=== PATIENT | male | born 1960 | race Caucasian/White ===

== ENCOUNTER 2022-07-15 08:00 | Outpatient (REF) | payer OTHER, SELFPAY ==
[2022-07-15 08:10] LABS: MANUAL DIFF FLAG NO
[2022-07-15 08:43] LABS: Basophils Percent Auto 0.6 % (0-2); Eosinophils Absolute Auto 0.3 X10*3/uL (0.0-0.4); Eosinophils Percent Auto 4.1 % (0-4); Hematocrit 44.1 % (42.0-52.0); Hemoglobin 14.7 g/dl (14.0-18.0); Imm Gran Abs Auto 0.02 X10*3/uL (0.00-0.03); Imm Gran Pct Auto 0.3 % (0.0-0.4); Lymphocytes Absolute Auto 2.2 X10*3/uL (1.2-4.9); Lymphocytes Percent Auto 30.7 % (20-40); Mean Corpuscular HGB Conc 33.3 g/dl (31.0-36.0); Mean Corpuscular Hemoglobin 30.6 pg (27.0-33.0); Mean Corpuscular Volume 91.7 fL (80.0-98.0); Monocytes Absolute Auto 0.7 X10*3/uL (0.1-1.2); Monocytes Percent Auto 9.2 % (2-11); Neutrophils Absolute Auto 3.9 x10*3/uL (2.0-8.3); Neutrophils Percent Auto 55.1 % (45-73); Platelet Count 249 X10*3/uL (160-400); Red Blood Count 4.81 X10*6/uL (4.60-5.80); Red Cell Distribution Width 12.4 % (11.0-16.0)
[2022-07-15 09:09] LABS: Alanine Aminotransferase 16 U/L (0-40); Albumin Level 4.2 g/dL (3.5-5.0); Alkaline Phosphatase 64 U/L (39-117); Anion Gap 12 (12-20); Aspartate Amino Transferase 15 U/L (5-37); Bilirubin Total 1.2 mg/dL (0.0-1.0); Blood Urea Nitrogen 18 mg/dL (9-16); Calcium 9.4 mg/dL (8.4-10.2); Carbon Dioxide 29 mmol/L (22-29); Chloride 104 mmol/L (96-108); Cholesterol 176 mg/dL; Estimated Glomerular Filt Rate > 60; Glucose Fasting 98 mg/dL (60-99); HDL Cholesterol 41 mg/dL; LDL Cholesterol Calculated 103 mg/dl; Potassium 4.5 mmol/L (3.3-5.1); Sodium 140 mmol/L (135-145); Total Protein 6.7 g/dL (6.5-8.0); Triglycerides 163 mg/dL
[2022-07-15 09:27] LABS: Prostate Specific Antigen Scr 0.71 ng/mL (<0.05-4.0)
== END 2022-07-15 08:01 | disposition home or self-care (01) ==
LOC: HO.LAB 08:00
PROVIDERS: PCP Internal Medicine; Visit Provider Internal Medicine
DX: Z00.00 Encounter for general adult medical examination without abnormal findings (principal); Z13.0 Encounter for screening for diseases of the blood and blood-forming organs and certain disorders involving the immune mechanism; Z12.5 Encounter for screening for malignant neoplasm of prostate; I10 Essential (primary) hypertension; E78.5 Hyperlipidemia, unspecified
CPT/HCPCS: 36415; 80053; 80061; 84153; 85025

== ENCOUNTER 2022-07-15 08:56 | Day surgery (SDC) | payer OTHER, SELFPAY ==
--- NOTE | 2022-07-12 13:25 | HO.ANESPROP2 ---
Documented by User: Julia Fallon NP 07/12/22 13:25 HPI - Anesthesia Eval Consult details Narrative: 62yo M for Colonoscopy PMFSH Active Problems Active Problems: All Active Problems (Updated 07/12/22 @ 13:07 by Tonia Dunaway RN) Physical exam (Acute) Hyperlipidemia (Acute) Hypertension (Acute) Past Medical History Medical History Back pain Hyperlipidemia Hypertension Family History Family History Father Past heart attack Mother No problems noted. Brother Hypertension CAD (coronary artery disease) Surgical History Surgical History History of appendectomy History of lumbar discectomy Hx of colonoscopy Social History Social History Housing: House Patient Tobacco Use Status: Current someday Tobacco user Tobacco use type: Cigar e-Cigarette/Vaping Use: Never Used Second Hand Smoke Exposure: Yes Use of substances other than those prescribed or required for medical reasons: Yes Substance Use Frequency: Occasionally Are you DNR?: No Advance Directives: No Advance Directives Information Provided: Yes service: No Current occupational status: employed Cognitive needs: No Hearing needs: No Vision needs: Yes (glasses) Meds Allergies Allergy/AdvReac Type Severity Reaction Status Date / Time No Known Allergies Allergy Verified 07/15/22 10:15 Exam Exam Date and Time: July 12, 2022 132 Assessment and Plan Assessment Anesthesia Assessment: Chart Reviewed Documented by User: Shelly Mustafa DO 07/15/22 10:53 PMFSH Past Medical History Medical History Back pain Hyperlipidemia Hypertension Family History Family History Father Past heart attack Mother No problems noted. Brother Hypertension CAD (coronary artery disease) Family history of problems with anesthesia: No Surgical History Surgical History History of appendectomy History of lumbar discectomy Hx of colonoscopy History of Problems with Anesthesia: No Social History Social History Housing: House Patient Tobacco Use Status: Current someday Tobacco user Tobacco use type: Cigar e-Cigarette/Vaping Use: Never Used Second Hand Smoke Exposure: Yes Use of substances other than those prescribed or required for medical reasons: Yes Substance Use Frequency: Occasionally Are you DNR?: No Advance Directives: No Advance Directives Information Provided: Yes service: No Current occupational status: employed Cognitive needs: No Hearing needs: No Vision needs: Yes (glasses) Meds Allergies Allergy/AdvReac Type Severity Reaction Status Date / Time No Known Allergies Allergy Verified 07/15/22 10:15 Exam Exam Date and Time: July 15, 2022 1048 Height,Weight and Vital Signs: Vital Signs Temperature 97.1 F 07/15/22 10:17 Pulse Rate 56 07/15/22 10:17 Respiratory Rate 15 07/15/22 10:17 Blood Pressure 150/77 H 07/15/22 10:17 Pulse Oximetry 99 07/15/22 10:17 Oxygen Delivery Method Room Air 07/15/22 10:17 Temperature 97.1 F 07/15/22 10:17 Pulse Rate 56 07/15/22 10:17 Respiratory Rate 15 07/15/22 10:17 Blood Pressure 150/77 H 07/15/22 10:17 Pulse Oximetry 99 07/15/22 10:17 Oxygen Delivery Method Room Air 07/15/22 10:17 Height 6 ft 1 in Weight 79.379 kg Airway Mallampati Class: I TM Dist: >3cm Loose/Missing/Broken Teeth: No Heart: S1S2 Lungs: CTAB Assessment and Plan Assessment Anesthesia Assessment: Anesthesia Plan Discussed Final Anesthetic Review Family History of Problems with Anesthesia: No History of Problems with Anesthesia: No NPO: Yes ASA Class: II Final Preanesthetic Review: No Changes in Pt Med Stat, Meds/Allgs Chart Reviewed, Consent Obtained/Reviewed and Anes Risks/Benef Reviewed Patient Risk: Low Procedure Risk: Low Anesthetic Plan Anesthetic Plan: MAC: Disposition: Standard PACU
[2022-07-15 10:15] VITALS: BMI 23.1
[2022-07-15 10:17] VITALS: BP 150/77; PULSE 56; RESP 15; TEMP 36.2; O2SAT 99
[2022-07-15] MEDS: Lactated Ringers 1,000 ML 100 ML IVCONT (10:28)
[2022-07-15 11:31] VITALS: BP 96/50; PULSE 56; RESP 16; TEMP 36.1; O2SAT 95
--- NOTE | 2022-07-15 11:33 | P.BOP_ITS ---
Brief Operative Note Date of Service: 07/15/22 Pre-op diagnosis: Screening Post-op diagnosis: other (Diverticulosis) Procedure: Colonoscopy to the cecum and TI Surgeon: Fabián Mijares Anesthesia: MAC Was an Manager Knowledge used for this Procedure?: No Estimated blood loss (mL): 0 Pathology: none sent Condition: stable Disposition: PACU
[2022-07-15 11:46] VITALS: BP 100/59; PULSE 51; RESP 16; O2SAT 98
[2022-07-15 12:01] VITALS: BP 119/73; PULSE 58; RESP 16; TEMP 36.6; O2SAT 96
--- NOTE | 2022-07-15 13:00 | OP_ITS ---
DATE OF SERVICE: 07/15/2022 SURGEON: Fabián Mijares MD INDICATIONS: The patient presents for evaluation of colorectal cancer screening. Full consent has been obtained from him for this, including risks of bleeding and perforation. PREOPERATIVE DIAGNOSIS: Colorectal cancer screening. POSTOPERATIVE DIAGNOSIS: PROCEDURE PERFORMED: Colonoscopy to the cecum and terminal ileum. ESTIMATED BLOOD LOSS: COMPLICATIONS: ANESTHESIA: Monitored anesthesia care. ASSISTANTS: SPECIMENS: POSTOPERATIVE DIAGNOSES: Colorectal cancer screening, sigmoid diverticulosis and internal hemorrhoids. DESCRIPTION OF PROCEDURE: The patient was placed in the left lateral decubitus position. The digital rectal exam revealed no abnormalities. The Olympus video pediatric colonoscope was entered into the rectum and advanced easily to the cecum. Once in the cecum, I did identify a normal-appearing cecal pouch with appendiceal orifice and a normal-appearing ileocecal valve. The terminal ileum was cannulated and appeared normal. The scope was withdrawn back in the colon. The entire cecum and ileocecal valve appeared normal. The scope was then slowly withdrawn assessing all mucosal surfaces carefully. Preparation was excellent. I did not visualize any polyps, colitis, nor angiodysplasia. There was a mild amount of sigmoid diverticulosis. In the rectum, the scope was retroflexed visualizing internal hemorrhoids, but no other pathology. The rectal mucosa appeared normal. The scope was straightened and withdrawn from the patient. He tolerated the procedure well and was returned to the recovery area in stable condition. IMPRESSION: 1. Sigmoid diverticulosis. 2. Internal hemorrhoids. PLAN: I would recommend a repeat colonoscopy in 10 years for further screening given today's negative exam and no family history of colon cancer. He would otherwise see me on a p.r.n. basis. MD JENNY Spring/WALT / [id number] MTDD
== END 2022-07-15 12:44 | disposition home or self-care (01) ==
PROVIDERS: PCP Internal Medicine; Visit Provider Internal Medicine
PROC: 0DJD8ZZ Inspection of Lower Intestinal Tract, Via Natural or Artificial Opening Endoscopic (ICD-10-PCS; CPT 45378; principal; 2022-07-15 10:30)
DX: Z12.11 Encounter for screening for malignant neoplasm of colon (principal); K57.30 Diverticulosis of large intestine without perforation or abscess without bleeding; K64.8 Other hemorrhoids; I10 Essential (primary) hypertension; E78.00 Pure hypercholesterolemia, unspecified; Z79.899 Other long term (current) drug therapy
CPT/HCPCS: 45378

== ENCOUNTER 2023-01-15 08:44 | Outpatient (AMB) | payer OTHER, SELFPAY ==
[2023-01-15 08:49] VITALS: BP 152/80; PULSE 69; O2SAT 99; BMI 23.9
--- NOTE | 2023-01-15 08:49 | MHC.PC.OV ---
Vital Signs 01/15/23 08:49 Height 6 ft 1 in Weight 181 lb BMI 23.9 BP 152/80 H Blood Pressure Location Lt brachial Position Sitting Pulse 69 Pulse Source Pulse Oximeter Pulse Oximetry (%) 99 Oxygen Delivery Method Room Air Intake Visit Reasons: Annual exam Mother Helper Required: No Pyrometer Operator: Not Required per policy Accompanied by: Self / Same As Patient Allergies No Known Allergies Allergy (Verified 01/15/23 08:49) Medication List - Last Reconciled 01/15/23 by Edin Leonard MD atenolol 50 mg PO DAILY atorvastatin 10 mg PO DAILY celecoxib 200 mg PO DAILY gemfibrozil 600 mg PO BID hydrochlorothiazide 25 mg PO DAILY tramadol 50 mg PO Q6H PRN 30 days Tobacco use date assessed: 01/15/23 Dental Screening Dental Screen Date: 01/15/23 Did you have a dental visit in the last 12 months?: Yes Did you have a dental problem in the last 6 months where you did not have access to dental care?: No Was dental information given to patient?: Patient has dentist HPI Annual exam HPI Details HTN hyperlipidemia and chronic back pain PFSH Medical History Back pain Hyperlipidemia Hypertension Surgical History Hx of colonoscopy History of lumbar discectomy History of appendectomy Family History Father Past heart attack Mother No problems noted. Brother Hypertension CAD (coronary artery disease) Social History Housing: House Patient Tobacco Use Status: Current someday Tobacco user Tobacco use type: Cigar e-Cigarette/Vaping Use: Never Used Second Hand Smoke Exposure: Yes service: No Current occupational status: employed Cognitive needs: No Hearing needs: No Vision needs: Yes (glasses) Questionnaire PHQ-9 Over the last 2 weeks, how often have you been bothered by any of the following problems? 1. Little interest or pleasure in doing things: not at all 2. Feeling down, depressed, or hopeless: not at all 3. Trouble falling or staying asleep, or sleeping too much: not at all 4. Feeling tired or having little energy: not at all 5. Poor appetite or overeating: not at all 6. Feeling bad about yourself - or that you are a failure or have let yourself or your family down: not at all 7. Trouble concentrating on things, such as reading the newspaper or watching television: not at all 8. Moving or speaking so slowly that other people could have noticed. Or the opposite - being so fidgety or restless that you have been moving around a lot more than usual: not at all 9. Thoughts that you would be better off or of hurting yourself in some way: not at all Total score: 0 Depression Screening Interpretation: Negative Depression Screening Done: Yes 36160 - PHQ-9 Billing: Yes Source: Developed by Drs. Fabián Connolly, Danuta Andersen, Nate Thurman and colleagues, with an educational ev from [employer]. Thrive Questionnaire Date Thrive assessed: 01/15/23 I am a: Patient What is your living situation today?: I have a steady place to live Within the past 12 months, did the food you bought not last and you didn't have the money to get more?: Never true Within the past 12 months, did you worry whether your food would run out before you got money to buy more?: Never true Do you have trouble paying for medicines?: No Do you have trouble getting transportation to medical appointments?: No Do you have trouble paying your heating and electricity bill?: No Do you have trouble taking care of your child, family member or friend?: No Do you have trouble with day-to-day activities such as bathing, preparing meals, shopping, managing finances, etc.?: No Are you currently unemployed and looking for a job?: No Are you interested in more education?: No Please select the resources that you would like help with: None AUDIT C Alcohol Use Questionnaire (AUDIT-C) 1. How often do you have a drink containing alcohol?: Never Total Score: 0 Score Reviewed/Action Taken: Yes ADA-7 AMB Questionnaire ADA-7 Date ADA - 7 assessed: 01/15/23 Feeling nervous, anxious, or on edge: 0 = Not at all Not being able to stop or control worryin = Not at all Worrying too much about different things: 0 = Not at all Trouble relaxin = Not at all Being so restless that it is hard to sit still: 0 = Not at all Becoming easily annoyed or irritable: 0 = Not at all Feeling afraid as if something awful might happen: 0 = Not at all Total ADA-7 score (0-4 normal; 5-9 mild; 10-14 moderate; 15-21 severe): 0 Source: Developed by Drs. Fabián Connolly, Danuta Andersen, Nate Thurman and colleagues, with an educational ev from [employer]. ADA-7 Assessment Billing ADA-7 Assessment Tool: ADA-7 Assessment 91360 Review of Systems Const Denies chills, Denies fatigue, Denies headache(s) and Denies weight loss Eyes Denies change in vision, Denies diplopia and Denies eye pain ENT Denies vertigo, Denies dizziness, Denies headache(s) and Denies nasal discharge Card Denies chest pain, Denies rapid heart rate and Denies dyspnea on exertion Resp Denies chest congestion, Denies cough, Denies pain with cough and Denies dyspnea on exertion GI Denies abdominal pain, Denies hematochezia and Denies change in bowel habits Musc Denies myalgias, Denies arthralgias and Denies joint swelling Skin/Breast Denies lesions and Denies unusual bruising Neuro Denies vertigo, Denies dizziness, Denies headache(s) and Denies focal weakness Endo Denies fatigue Physical exam (Primary Care) Vital Signs: Last Vital Signs Pulse 69 01/15/23 08:49 BP 152/80 H 01/15/23 08:49 Pulse Ox 99 01/15/23 08:49 Oxygen Delivery Method Room Air 01/15/23 08:49 BMI result Body Mass Index 23.9 Tobacco/Smoking Status: Tobacco use Status Tobacco use date assessed 01/15/23 01/15/23 08:50 Patient Tobacco Use Status Current someday Tobacco 01/15/23 08:50 Tobacco use type Cigar 01/15/23 08:50 e-Cigarette/Vaping Use Never Used 01/15/23 08:50 PHQ-9: PHQ-9 Score PHQ-9: Total score 0 01/15/23 09:17 Depression Screening Interpretation: Negative Thrive Assessment: Date of Thrive Assessment Date Thrive assessed 01/15/23 01/15/23 08:50 Const General: cooperative, healthy appearing and no acute distress Orientation/consciousness: oriented to person, oriented to place and oriented to time HENMT Head: Yes normal to inspection, Yes normocephalic and Yes atraumatic Mouth: Normal oral and palatal mucosa present and tongue normal Throat: Yes posterior oropharynx normal and Yes uvula midline Eyes General: appearance normal, both eyes and all related structures Neck Neck: Yes normal visual inspection, Yes full ROM and Yes no lymphadenopathy Thyroid: Thyroid normal Carotids: normal carotid upstroke Chest Chest palpation & inspection: normal inspection of the chest Resp Effort & Inspection: normal respiratory effort and able to speak in complete sentences Auscultation: clear to auscultation bilaterally Cardio Jugular venous distension: no JVD Palpation: normal PMI Rate: regular rate Rhythm: regular rhythm Heart sounds: S1 normal heart sound present and S2 normal heart sound present GI Inspection: Yes normal to inspection Palpation (GI): Soft to palpation and No hepatosplenomegaly present Auscultation: normal bowel sounds General: Yes no CVA tenderness Back/Spine/Pelvis Back: no CVA tenderness Skin General skin exam: no rashes or lesions noted Neuro General: oriented to person, oriented to place and oriented to time Extrem General: Yes normal to inspection and Yes full ROM Office Procedures Flu Questionnaire Does the patient have a severe egg allergy?: No Does the patient have severe life threatening allergies?: No Does the patient have a fever or illness today?: No Has the patient ever had Guillain-[place] Syndrome?: No Has the patient ever had any past reaction to a flu shot?: No Immunizations flu vacc [id number] 6mos up(PF) 60 mcg(15 mcgx4)/0.5 mL IM syringe Performing Provider: Edin Leonard MD [facility] Documented (not given) by: ANIA Sin on 01/15/23 09:18 Reason Not Given: Not Given Assessment and Plan Assessment & Plan (1) Physical exam: Code(s): Z00.00 - Encounter for general adult medical examination without abnormal findings Plan: stable; do labs (2) Hyperlipidemia: Code(s): E78.5 - Hyperlipidemia, unspecified Plan: stable; same rx (3) Hypertension: Code(s): I10 - Essential (primary) hypertension Plan: stable; same rx Orders: Orders Influenza [id number] Immunization Today Z23 - Encounter for immunization Coding Level of Care Code Est Pt Prev Care 40-64y(92704) Diagnoses Physical exam Z00.00 Hyperlipidemia E78.5 Hypertension I10 Additional Codes ADA-7 Assessment Billing - ADA-7 Assessment Tool: ADA-7 Assessment [id number] ([id number])
== END 2023-01-15 09:19 | disposition home or self-care (01) ==
PROVIDERS: Visit Provider Internal Medicine
DX: Z00.00 Encounter for general adult medical examination without abnormal findings (principal); E78.5 Hyperlipidemia, unspecified; I10 Essential (primary) hypertension
CPT/HCPCS: 99396

== ENCOUNTER 2024-01-16 10:54 | Outpatient (AMB) | payer OTHER, SELFPAY ==
[2024-01-16 10:58] VITALS: BP 160/90; PULSE 70; O2SAT 97; BMI 24.3
--- NOTE | 2024-01-16 10:58 | A.OFFPC_ITS ---
Vital Signs 01/16/24 10:58 Height 6 ft 1 in Weight 184 lb BMI 24.3 BP 160/90 H Blood Pressure Location Lt brachial Position Sitting Pulse 70 Pulse Source Pulse Oximeter Pulse Oximetry (%) 97 Oxygen Delivery Method Room Air Intake Visit Reasons: Annual Exam Children Librarian Required: No Accompanied by: Self / Same As Patient Allergies No Known Allergies Allergy (Verified 01/16/24 10:58) Medication List - Last Reconciled 01/19/24 by Edin Leonard MD atenolol 50 mg PO DAILY atorvastatin 10 mg PO DAILY celecoxib 200 mg PO DAILY gemfibrozil 600 mg PO BID hydrochlorothiazide 25 mg PO DAILY tramadol 50 mg PO Q6H PRN 30 days Tobacco use date assessed: 01/16/24 Dental Screening Dental Screen Date: 01/16/24 Did you have a dental visit in the last 12 months?: Yes Did you have a dental problem in the last 6 months where you did not have access to dental care?: No Was dental information given to patient?: Patient has dentist HPI Annual Exam HPI Details HTN and hyperlipidemia on rx; compliant [facility] Medical History Back pain Hyperlipidemia Hypertension Surgical History Hx of colonoscopy History of lumbar discectomy History of appendectomy Family History Father Past heart attack Mother No problems noted. Brother Hypertension CAD (coronary artery disease) Social History Housing: House Patient Tobacco Use Status: Current someday Tobacco user Tobacco use type: Cigar e-Cigarette/Vaping Use: Never Used Second Hand Smoke Exposure: Yes service: No Current occupational status: employed Cognitive needs: No Hearing needs: No Vision needs: Yes (glasses) Questionnaire PHQ-9 Over the last 2 weeks, how often have you been bothered by any of the following problems? 1. Little interest or pleasure in doing things: not at all 2. Feeling down, depressed, or hopeless: not at all 3. Trouble falling or staying asleep, or sleeping too much: not at all 4. Feeling tired or having little energy: not at all 5. Poor appetite or overeating: not at all 6. Feeling bad about yourself - or that you are a failure or have let yourself or your family down: not at all 7. Trouble concentrating on things, such as reading the newspaper or watching television: not at all 8. Moving or speaking so slowly that other people could have noticed. Or the opposite - being so fidgety or restless that you have been moving around a lot more than usual: not at all 9. Thoughts that you would be better off or of hurting yourself in some way: not at all Total score: 0 Source: Developed by Drs. Fabián Connolly, Danuta Andersen, Nate Thurman and colleagues, with an educational ev from [employer]. Thrive Questionnaire Date Thrive assessed: 01/16/24 I am a: Patient What is your living situation today?: I have a steady place to live Within the past 12 months, did the food you bought not last and you didn't have the money to get more?: Never true Within the past 12 months, did you worry whether your food would run out before you got money to buy more?: Never true Do you have trouble paying for medicines?: No Do you have trouble getting transportation to medical appointments?: No Do you have trouble paying your heating and electricity bill?: No Do you have trouble taking care of your child, family member or friend?: No Do you have trouble with day-to-day activities such as bathing, preparing meals, shopping, managing finances, etc.?: No Are you currently unemployed and looking for a job?: No Are you interested in more education?: No Please select the resources that you would like help with: None Currently or been in a relationship where the following occur: No concerns reported THRIVE Score: 0 AUDIT C Alcohol Use Questionnaire (AUDIT-C) 1. How often do you have a drink containing alcohol?: Never Total Score: 0 ADA-7 AMB Questionnaire ADA-7 Date ADA - 7 assessed: 01/16/24 Feeling nervous, anxious, or on edge: 0 = Not at all Not being able to stop or control worryin = Not at all Worrying too much about different things: 0 = Not at all Trouble relaxin = Not at all Being so restless that it is hard to sit still: 0 = Not at all Becoming easily annoyed or irritable: 0 = Not at all Feeling afraid as if something awful might happen: 0 = Not at all Total ADA-7 score (0-4 normal; 5-9 mild; 10-14 moderate; 15-21 severe): 0 Source: Developed by Drs. Fabián Connolly, Danuta Andersen, Nate Thurman and colleagues, with an educational ev from [employer]. Review of Systems Const Denies chills, Denies fatigue, Denies headache(s) and Denies weight loss Eyes Denies change in vision, Denies diplopia and Denies eye pain ENT Denies vertigo, Denies dizziness, Denies headache(s) and Denies nasal discharge Card Denies chest pain, Denies rapid heart rate and Denies dyspnea on exertion Resp Denies chest congestion, Denies cough, Denies pain with cough and Denies dyspnea on exertion GI Denies abdominal pain, Denies hematochezia and Denies change in bowel habits Musc Denies myalgias, Denies arthralgias and Denies joint swelling Skin/Breast Denies lesions and Denies unusual bruising Neuro Denies vertigo, Denies dizziness, Denies headache(s) and Denies focal weakness Endo Denies fatigue Physical exam (Primary Care) Vital Signs: Last Vital Signs Pulse 70 01/16/24 10:58 BP 160/90 H 01/16/24 10:58 Pulse Ox 97 01/16/24 10:58 Oxygen Delivery Method Room Air 01/16/24 10:58 BMI result Body Mass Index 24.3 Tobacco/Smoking Status: Tobacco use Status Tobacco use date assessed 01/16/24 01/16/24 10:58 Patient Tobacco Use Status Current someday Tobacco 01/16/24 10:58 Tobacco use type Cigar 01/16/24 10:58 e-Cigarette/Vaping Use Never Used 01/16/24 10:58 PHQ-9: PHQ-9 Score PHQ-9: Total score 0 01/16/24 10:58 Thrive Assessment: Date of Thrive Assessment Date Thrive assessed 01/16/24 01/16/24 10:58 Currently or been in a relationship where the following occur: No concerns reported Const General: cooperative, healthy appearing and no acute distress Orientation/consciousness: oriented to person, oriented to place and oriented to time HENMT Head: Yes normal to inspection, Yes normocephalic and Yes atraumatic Mouth: Normal oral and palatal mucosa present and tongue normal Throat: Yes posterior oropharynx normal and Yes uvula midline Eyes General: appearance normal, both eyes and all related structures Neck Neck: Yes normal visual inspection, Yes full ROM and Yes no lymphadenopathy Thyroid: Thyroid normal Carotids: normal carotid upstroke Chest Chest palpation & inspection: normal inspection of the chest Resp Effort & Inspection: normal respiratory effort and able to speak in complete sentences Auscultation: clear to auscultation bilaterally Cardio Jugular venous distension: no JVD Palpation: normal PMI Rate: regular rate Rhythm: regular rhythm Heart sounds: S1 normal heart sound present and S2 normal heart sound present GI Inspection: Yes normal to inspection Palpation (GI): Soft to palpation and No hepatosplenomegaly present Auscultation: normal bowel sounds General: Yes no CVA tenderness Back/Spine/Pelvis Back: no CVA tenderness Skin General skin exam: no rashes or lesions noted Neuro General: oriented to person, oriented to place and oriented to time Extrem General: Yes normal to inspection and Yes full ROM Coding Level of Care Code Est Pt Prev Care 40-64y(44246) Diagnoses Physical exam Z00.00 Hyperlipidemia E78.5 Hypertension I10 Assessment & Plan Assessment & Plan (1) Physical exam: Code(s): Z00.00 - Encounter for general adult medical examination without abnormal findings Category: Medical Plan: stable; do labs (2) Hyperlipidemia: Code(s): E78.5 - Hyperlipidemia, unspecified Category: Medical Plan: stable; same rx (3) Hypertension: Code(s): I10 - Essential (primary) hypertension Category: Medical Plan: stable; same rx Orders: Orders Comprehensive [place]. Panel Fast 01/16/24 Z13.9 - Encounter for screening, unspecified Lipid Panel 01/16/24 Z13.220 - Encounter for screening for lipoid disorders Thyroid Stimulating Hormone 01/16/24 Z13.29 - Encounter for screening for other suspected endocrine disorder Complete Blood Count Auto Diff 01/16/24 Z13.0 - Encounter for screening for diseases of the blood and blood-forming organs and certain disorders involving the immune mechanism Prostate Specific Antigen Scr 01/16/24 Z00.00 - Encounter for general adult medical examination without abnormal findings
== END 2024-01-16 11:16 | disposition home or self-care (01) ==
PROVIDERS: PCP Internal Medicine; Visit Provider Internal Medicine
DX: Z00.00 Encounter for general adult medical examination without abnormal findings (principal); E78.5 Hyperlipidemia, unspecified; I10 Essential (primary) hypertension

== ENCOUNTER 2024-01-24 05:09 | Emergency (ER) | payer OTHER, SELFPAY ==
--- NOTE | ~2024-01-24 | US_ITS ---
EXAMINATION: US SCROTUM CLINICAL INFORMATION: Left testicular pain. COMPARISON: None available. TECHNIQUE: A sonogram of the scrotum was performed assessing robins-scale appearance and color Doppler flow. Spectral Doppler analysis of the arterial and venous flow were performed in the testes bilaterally. FINDINGS: RIGHT: Right testicle measures 5 x 2.4 x 3.8 cm, volume 23.9 mL. Small focal parenchymal calcification measuring up to 0.1 cm. No additional focal testicular parenchymal lesions are visualized. Spectral Doppler analysis of the arterial and venous flow is normal in the right testis. Right epididymal head is normal in size. No right hydrocele or varicocele is seen. Right epididymal Doppler flow is normal. LEFT: Left testicle measures 5.2 x 2.6 x 3.3 cm, volume 23.3 mL. No focal testicular parenchymal lesions are visualized. Spectral Doppler analysis of the arterial and venous flow is normal in the left testis. Left epididymal head is normal in size. The epididymal body is slightly prominent. There are small left epididymal head cysts measuring up to 0.2 cm. Left appendix testes measuring up to 0.5 cm. No left hydrocele or varicocele is seen. Left epididymal Doppler flow is normal. US/US scrotum IMPRESSION: 1. Slightly prominent left epididymal body with small left epididymal head cysts measuring up to 0.2 cm. No increased Doppler detectable vascular flow or evidence of acute epididymitis. 2. Small right testicular parenchymal calcification measuring 0.1 cm. 3. Left appendix testes measuring up to 0.5 cm. Electronically signed by: Nolan Vital MD 01/24/2024 09:43 AM [facility]
--- NOTE | ~2024-01-24 | US_ITS ---
EXAMINATION: US SCROTUM CLINICAL INFORMATION: Left testicular pain. COMPARISON: None available. TECHNIQUE: A sonogram of the scrotum was performed assessing robins-scale appearance and color Doppler flow. Spectral Doppler analysis of the arterial and venous flow were performed in the testes bilaterally. FINDINGS: RIGHT: Right testicle measures 5 x 2.4 x 3.8 cm, volume 23.9 mL. Small focal parenchymal calcification measuring up to 0.1 cm. No additional focal testicular parenchymal lesions are visualized. Spectral Doppler analysis of the arterial and venous flow is normal in the right testis. Right epididymal head is normal in size. No right hydrocele or varicocele is seen. Right epididymal Doppler flow is normal. LEFT: Left testicle measures 5.2 x 2.6 x 3.3 cm, volume 23.3 mL. No focal testicular parenchymal lesions are visualized. Spectral Doppler analysis of the arterial and venous flow is normal in the left testis. Left epididymal head is normal in size. The epididymal body is slightly prominent. There are small left epididymal head cysts measuring up to 0.2 cm. Left appendix testes measuring up to 0.5 cm. No left hydrocele or varicocele is seen. Left epididymal Doppler flow is normal. US/US scrotum doppler IMPRESSION: 1. Slightly prominent left epididymal body with small left epididymal head cysts measuring up to 0.2 cm. No increased Doppler detectable vascular flow or evidence of acute epididymitis. 2. Small right testicular parenchymal calcification measuring 0.1 cm. 3. Left appendix testes measuring up to 0.5 cm. Electronically signed by: Nolan Vital MD 01/24/2024 09:43 AM [facility]
[2024-01-24 05:10] VITALS: BP 196/91; PULSE 75; RESP 20; TEMP 36.7; O2SAT 100; BMI 23.1
[2024-01-24 06:25] VITALS: BP 188/84; PULSE 85; RESP 22; TEMP 36.6; O2SAT 100
--- NOTE | 2024-01-24 07:01 | ED_ITS ---
HPI - Back Pain/Injury General Chief Complaint: Back Pain/Injury Stated Complaint: Back Pain Time Seen by Provider: 01/24/24 07:00 Source: patient and old records reviewed Mode of arrival: ambulatory Limitations: no limitations History of Present Illness ED Provider: ELIZA MURRIETA Narrative: 63 yo male with PMH of chronic back pain, HTN, HLD, back surgery back in 1995, prior ruptured appendix not on blood thinners here with c/o MD elicited complaint: back pain Pertinent past history: prior back pain Onset (ago): month(s) (August) Timing: constant Severity: severe Similar Symptoms Previously: Yes Quality: burning, sharp and throbbing Location: lumbar spine Radiation: left upper leg Exacerbating factors: movement Relieving factors: none Context: unknown Associated symptoms: other (L testicle pain) Treatments prior to arrival: cold therapy, prescription analgesics and other medications Work related injury: No Related Data Previous Rx's ?Medication ?Instructions ?Recorded hydrochlorothiazide 25 mg tablet 25 mg PO DAILY #90 tabs 02/08/22 atenolol 50 mg tablet 50 mg PO DAILY #90 tabs 04/18/22 celecoxib 200 mg capsule 200 mg PO DAILY #90 caps 05/29/23 gemfibrozil 600 mg tablet 600 mg PO BID #180 tabs 06/10/23 atorvastatin 10 mg tablet 10 mg PO DAILY #90 tabs 11/13/23 tramadol 50 mg tablet 50 mg PO Q6H PRN pain 30 days #360 11/30/23 tabs diazepam 5 mg tablet (Valium) 5 mg PO TID PRN muscle spasm #10 01/24/24 tabs morphine 15 mg immediate release 15 mg PO Q6H PRN pain #14 tabs 01/24/24 tablet Allergies Allergy/AdvReac Type Severity Reaction Status Date / Time No Known Allergies Allergy Verified 01/24/24 05:10 Review of Systems Review of Systems: Constitutional : No Weight loss, No Fever, No Chills, ENT/Mouth : No Hearing loss, No Ear Pain, No Nasal Congestion, No Sinus Pain, No Hoarseness, No sore throat, No Rhinorrhea, No Swallowing Difficulty Cardiovascular : No Chest Pain, No SOB Respiratory : No Cough, No Dyspnea Gastrointestinal : No Nausea, No Vomiting, No Diarrhea, No abdominal Pain, No Hematochezia, No Melena Genitourinary : No Dysuria, No Urinary Frequency, No Hematuria, No Urinary Incontinence, Musculoskeletal : positive back pain Skin : No Skin Lesions, No rash Neuro : No Weakness, No Numbness, No Paresthesias, no loss of bowel or bladder incontinence, no saddle anesthesia all other systems reviewed are negative [facility] Past Medical History Attestation statement: The following information was validated with the patient. Source: old records reviewed Medical History Back pain Hyperlipidemia Hypertension Surgical History Hx of colonoscopy History of lumbar discectomy History of appendectomy Family History Family History Father Past heart attack Mother No problems noted. Brother Hypertension CAD (coronary artery disease) Social History Social History Housing: House Patient Tobacco Use Status: Current someday Tobacco user Tobacco use type: Cigar Smoked in Last 30 Days: No e-Cigarette/Vaping Use: Never Used Second Hand Smoke Exposure: Yes Advance Directives: No Advance Directives Information Provided: Yes Do you have a plan to hurt others: No Plan service: No Current occupational status: employed Cognitive needs: No Hearing needs: No Vision needs: Yes (glasses) Physical Exam Vital Signs: Vital Signs: Last Vital Signs Temp 97.9 F 01/24/24 06:25 Pulse 61 01/24/24 07:57 Resp 18 01/24/24 07:57 BP 192/92 H 01/24/24 07:57 Pulse Ox 98 01/24/24 07:57 O2 Del Method Room Air 01/24/24 07:57 BMI result Body Mass Index 23.1 Appearance: Alert. Oriented X3. No acute distress. Eyes: Pupils equal, round and reactive to light. ENT: Pharynx normal. Neck: Normal inspection. Neck supple. CVS: Normal heart rate and rhythm. Pulses normal. Respiratory: No respiratory distress. Breath sounds normal. Abdomen: Soft and non-tender. old midline scar Skin: Skin warm and dry. Normal skin color. Normal skin turgor. Extremities: No lower extremity edema. No calf ttp Neuro: Oriented X 3. No motor deficit. No sensory deficit. L5 5/5 bilaterally, no clonus, 2+ DTR in patella and achilles, SILT inner thigh Medications Administered Discontinued Medications Generic Name Dose Route Start Last Admin Trade Name Francine PRN Reason Stop Dose Admin Diazepam 5 mg 01/24/24 07:18 01/24/24 07:54 Diazepam 5 Mg Tablet PO 01/24/24 07:19 5 mg ONCE ONE Administration Morphine Sulfate 15 mg 01/24/24 07:18 01/24/24 07:54 Morphine Sulfate Immed Release 15 Mg Tablet PO 01/24/24 07:19 15 mg ONCE ONE Administration Prednisone 40 mg 01/24/24 07:18 01/24/24 07:53 Prednisone 20 Mg Tablet PO 01/24/24 07:19 40 mg ONCE ONE Administration Medical Decision Making Medical Decision Making [facility] Narrative: 63 yo male with PMH of chronic back pain, HTN, HLD, back surgery back in 1995, prior ruptured appendix not on blood thinners here with c/o worsening back pain since August has had cortisone injections x 2 with no relief. The pain is worsening traveling down the left leg and he feels it tingle. He has no b/b incontinence no saddle anesthesia, also has L testicle pain but no abdominal pain - was scheduled for US but never scheduled. Has appointment with Kevin on 02/12. He is NV intact, no clonus normal reflexes at this time will obtain UA for infection, scrotum US and treat his back pain as his tramadol is no longer working. Abdomen is benign Differential Diagnosis Differential Diagnoses: The differential diagnosis associated with the presentation includes back strain, testicular pain, lumbar radiculopathy Admission/Observation Consideration of admission/observation: Escalation of care including admission/observation considered feels better stable for UT Lab Data [facility] Lab Attestation statement: I reviewed the patient's lab results. Labs: Lab Results 01/24/24 Range/Units 08:11 Urine Color Yellow Urine Appearance Clear Urine pH 6.0 (5.0-9.0) Ur Specific [place] 1.015 (1.005-1.025) Urine Protein Negative (Neg-Trace) mg/dL Urine Glucose (UA) Negative (Negative) mg/dL Urine Ketones Negative (Negative) mg/dL Urine Blood Negative (Negative) Urine Nitrite Negative (Negative) Ur Leukocyte Esterase Negative (Negative) Independent Interpretation I performed an independent interpretation of an: Ultrasound (no infection) Radiology Impression Discussion of test interpretation with radiology: I have reviewed the radiologist's reading. Independent Historian Clinical information obtained from an independent historian. History obtained from or confirmed by: Spouse External Record Review External record reviewed: Prior outpatient radiology MRI last month - no disc protrusion, no thecal sac involvement has foraminal stenosis of lumbar spine worse on R, no abscess noted Prescription Management I considered prescription management with: Pain Medication Discharge Plan Discharge Clinical Impression: Lumbar radiculopathy Patient Disposition: Home, Self-Care Instructions: Lumbar Radiculopathy (ED), Back Pain (ED) Additional Instructions: no acute findings on ultrasound can follow up with urology - cysts urine normal please follow up with primary care doctor until spine appointment return for any worsening symptoms or concerns hold tramadol while on medications US/US scrotum IMPRESSION: 1. Slightly prominent left epididymal body with small left epididymal head cysts measuring up to 0.2 cm. No increased Doppler detectable vascular flow or evidence of acute epididymitis. 2. Small right testicular parenchymal calcification measuring 0.1 cm. 3. Left appendix testes measuring up to 0.5 cm. Prescriptions: New morphine 15 mg tablet 15 mg PO Q6H PRN (Reason: pain) Qty: 14 0RF Rx Instructions: partial fill okay; Partial Fill upon patient request. diazepam [Valium] 5 mg tablet 5 mg PO TID PRN (Reason: muscle spasm) Qty: 10 0RF Rx Instructions: partial fill is okay No Action hydrochlorothiazide 25 mg tablet 25 mg PO DAILY Qty: 90 8RF atenolol 50 mg tablet 50 mg PO DAILY Qty: 90 8RF celecoxib 200 mg capsule 200 mg PO DAILY Qty: 90 8RF gemfibrozil 600 mg tablet 600 mg PO BID Qty: 180 8RF atorvastatin 10 mg tablet 10 mg PO DAILY Qty: 90 3RF tramadol 50 mg tablet 50 mg PO Q6H PRN (Reason: pain) 30 Days Qty: 360 0RF Print Language: Sami
[2024-01-24] MEDS: predniSONE 20 MG TABLET 40 MG PO (07:53)
[2024-01-24] MEDS: Morphine Sulfate Immed Release 15 MG TABLET PO (07:54)
[2024-01-24] MEDS: diazePAM 5 MG TABLET PO (07:54)
[2024-01-24 07:57] VITALS: BP 192/92; PULSE 61; RESP 18; O2SAT 98
--- NOTE | 2024-01-24 08:00 | PC.NURSE ---
pt is alert and oriented, skin pwd, respirations even and unlabored, pt is reporting lower back pain with the pain radiating to his left leg and testicle area- pt does reports chronic back pain cortisone injections but this pain is worse and the radiating to the leg is not typical for the pt
[2024-01-24 08:54] LABS: Appearance Urine Clear; Color Urine Yellow; Glucose Urine UA Negative (Negative); Leukocyte Esterase Urine Negative (Negative); Nitrite Urine Negative (Negative); Specific Gravity - Urine 1.015 (1.005-1.025); Urine Blood Negative (Negative); Urine Ketones Negative (Negative); Urine Protein Negative (Neg-Trace)
[2024-01-24 10:36] VITALS: BP 192/92; PULSE 61; RESP 18; TEMP -17.7; TEMP 0; O2SAT 98
== END 2024-01-24 10:37 | disposition home or self-care (01) ==
PROVIDERS: Emergency Provider Emergency Medicine; PCP Internal Medicine
DX: M54.16 Radiculopathy, lumbar region (principal); N50.812 Left testicular pain; I10 Essential (primary) hypertension; E78.5 Hyperlipidemia, unspecified; F17.200 Nicotine dependence, unspecified, uncomplicated
CPT/HCPCS: 76870; 81003; 93975; 99284

== ENCOUNTER 2024-02-13 14:15 | Outpatient (REF) | payer OTHER, SELFPAY | END 2024-02-13 14:16 | disposition home or self-care (01) | LOC: HO.HOSX 14:15 | PROVIDERS: PCP Internal Medicine; Visit Provider Neurological Surgery | DX: M54.16 Radiculopathy, lumbar region (principal); M41.56 Other secondary scoliosis, lumbar region | CPT/HCPCS: 72110 ==

== ENCOUNTER 2024-02-13 14:15 | Outpatient (AMB) | payer OTHER, SELFPAY ==
[2024-02-13 15:34] VITALS: BMI 24.4
--- NOTE | 2024-02-13 15:34 | A.SPINEOV_ITS ---
Vital Signs 02/13/24 15:34 Height 6 ft Weight 180 lb BMI 24.4 Intake Visit Reasons: Back pain Intake Note: Mr. Sullivan is here today c/o Back pain and lower left testicular pain. 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 S pecifically in 1995 he had a partial diskectomy L4-5. In 2016 he developed 2 months of severe pain radiating to his left groin. Then there was a pain-free. Until August 2023 where he developed severe back pain that prevents daily activities, including golf. He went to the chiropractor and underwent acupuncture without effect. In September of 2023 he developed severe left testicle pain with the back pain. The pain increases with standing and walking. It also came, spontaneously at night. Sitting is the best position to prevent the pain. In November 2013 he was evaluated by Dr. Poole, orthopedic spine surgeon who referred him to the urologist that excluded urological problem. He was then referred to pain in the spinal support ray received a left L2-3 transforaminal epidural steroid injection on 12/17/2023 that gave him complete relief for 24-36 hours. He had another SRINATH done at L3-4 on 01/20/2024 that only gave him very short-term relief. On 01/24/2024 the pain was so bad radiating to his left testicle and left leg that he went to the emergency room at [facility] way was given morphine. He had another follow-up at pain he has spinous sports where they discuss the spinal cord stimulator. He states that the pain now is radiating to his left testicle but also to the front of his thigh. The following conservative treatment options were tried without success antiin flammatories, tylenol, physician guided home exercise plan, cortisone shots PMH: Hypertension, hypercholesterolemia both controlled with medications Medications: Atenolol, celecxib, gemfibrozil, atorvastatin, tramadol Allergies: NKDA Social history: . Nonsmoker Physical Exam: Height 6 ft weight 180 lb. Pleasant male. Neurological exam shows grade 3/5 weakness of the LEs iliopsoas muscle. Sensory exam is intact. Straight leg raise is negative. Reverse straight leg raise was not performed. Reflexes are symmetrically intact Radiological Studies: MRI done at [facility] shows a lumbar degenerative scoliosis with the apex at L2-3 and L3-4 (I think the patient has 6 lumbar vertebrae) which causes severe left foraminal stenosis for the L2 and L3 nerve roots. The degenerative scoliosis is confirmed with a standing x-ray obtained today . Impression/Plan: This patient is suffering from a left L2, L3 radiculopathy caused by lumbar degenerative scoliosis. Treatment for this is a minimally invasive correction of the scoliosis to indirectly decompress the nerve structures. Unfortunately, a laminotomy only will only give temporary relief. Therefore I offered him an oblique lumbar interbody fusion of those levels. He did have a laparotomy done when he was 18 years old for perforated appendix which potentially could interfere with the approach due to scar tissue. However, I would prefer to do this approach. An alternative would be to convert to a Transkambin approach. I explained both procedures and expected postoperative course. Thank you for allowing me to participate in your patients care. total time spent was 50 minutes in counseling ,coordination of plan, personal review of imaging, surgical decision making and subsequent plan Joel Brown MD, PhD Spine Fellowship Trained Neurosurgeon Director, [facility] (2) Scoliosis of lumbar region due to degenerative disease of spine in adult: Code(s): M41.56 - Other secondary scoliosis, lumbar region Category: Medical Plan: d Orders: Orders XR lumbar spine 4V min Today M41.56 - Other secondary scoliosis, lumbar region, M54.16 - Radiculopathy, lumbar region Coding Level of Care Code New Pt Level 4 (91000) Diagnoses Lumbar radiculopathy, acute M54.16 Scoliosis of lumbar region due to degenerative disease of spine in adult M41.56
== END 2024-02-13 16:53 | disposition home or self-care (01) ==
LOC: HO.HNS 14:15
PROVIDERS: PCP Internal Medicine; Visit Provider Neurological Surgery
DX: M54.16 Radiculopathy, lumbar region (principal); M41.56 Other secondary scoliosis, lumbar region
CPT/HCPCS: 99204

== ENCOUNTER 2024-02-26 08:18 | Outpatient (REF) | payer OTHER, SELFPAY ==
[2024-02-26 08:36] LABS: MANUAL DIFF FLAG NO
[2024-02-26 08:55] LABS: Basophils Percent Auto 0.6 % (0-2); Eosinophils Absolute Auto 0.5 X10*3/uL (0.0-0.4); Hematocrit 42.4 % (42.0-52.0); Hemoglobin 14.5 g/dl (14.0-18.0); Imm Gran Abs Auto 0.02 X10*3/uL (0.00-0.03); Imm Gran Pct Auto 0.3 % (0.0-0.4); Lymphocytes Percent Auto 29.4 % (20-40); Mean Corpuscular HGB Conc 34.2 g/dl (31.0-36.0); Mean Corpuscular Hemoglobin 30.6 pg (27.0-33.0); Mean Corpuscular Volume 89.5 fL (80.0-98.0); Mean Platelet Volume 9.6 fL (9.4-12.4); Monocytes Absolute Auto 0.5 X10*3/uL (0.1-1.2); Neutrophils Absolute Auto 3.6 x10*3/uL (2.0-8.3); Neutrophils Percent Auto 53.7 % (45-73); Platelet Count 252 X10*3/uL (160-400); Red Blood Count 4.74 X10*6/uL (4.60-5.80); Red Cell Distribution Width 12.7 % (11.0-16.0); White Blood Count 6.7 X10*3/uL (4.8-10.8)
[2024-02-26 09:41] LABS: Alanine Aminotransferase 16 U/L (0-40); Albumin Level 4.1 g/dL (3.5-5.0); Alkaline Phosphatase 72 U/L (39-117); Anion Gap 14 (12-20); Aspartate Amino Transferase 18 U/L (5-37); Bilirubin Total 0.4 mg/dL (0.0-1.0); Blood Urea Nitrogen 23 mg/dL (9-16); Calcium 9.1 mg/dL (8.4-10.2); Carbon Dioxide 28 mmol/L (22-29); Chloride 107 mmol/L (96-108); Cholesterol 182 mg/dL (<200); Estimated Glomerular Filt Rate > 60; Glucose Fasting 104 mg/dL (60-99); HDL Cholesterol 43 mg/dL (>40); LDL Cholesterol Calculated 99 mg/dL (<100); Potassium 4.7 mmol/L (3.3-5.1); Sodium 144 mmol/L (135-145); Total Protein 6.9 g/dL (6.5-8.0); Triglycerides 201 mg/dL (<150)
[2024-02-26 09:54] LABS: Prostate Specific Antigen Scr 1.82 ng/mL (<0.05-4.0)
[2024-02-26 09:56] LABS: Thyroid Stimulating Hormone 2.04 uIU/mL (0.32-4.0)
== END 2024-02-26 08:19 | disposition home or self-care (01) ==
LOC: HO.LAB 08:18
PROVIDERS: PCP Internal Medicine; Visit Provider Internal Medicine
DX: Z00.00 Encounter for general adult medical examination without abnormal findings (principal); Z13.0 Encounter for screening for diseases of the blood and blood-forming organs and certain disorders involving the immune mechanism; Z13.29 Encounter for screening for other suspected endocrine disorder; Z13.220 Encounter for screening for lipoid disorders; Z12.5 Encounter for screening for malignant neoplasm of prostate
CPT/HCPCS: 36415; 80053; 80061; 84153; 84443; 85025

== ENCOUNTER → 2024-03-29 14:08 | Outpatient (BNV) | payer OTHER, SELFPAY | PROVIDERS: Admitting Provider Neurological Surgery; PCP Internal Medicine; Visit Provider Internal Medicine Cardiovascular Disease | DX: Z01.810 Encounter for preprocedural cardiovascular examination (principal) | CPT/HCPCS: 93010 ==

== ENCOUNTER 2024-04-07 06:43 | Inpatient (IN) | payer OTHER, SELFPAY ==
--- NOTE | 2024-03-29 | ECG_ITS ---
Test Reason : PREOP Blood Pressure : */* mmHG Vent. Rate : 73 BPM Atrial Rate : 73 BPM P-R Int : 178 ms QRS Dur : 88 ms QT Int : 388 ms P-R-T Axes : 78 56 69 degrees QTcB Int : 427 ms Normal sinus rhythm Normal ECG No previous ECGs available Referred By: Julia Fallon Electronically Signed By: EDUARDO JONES MD
[2024-03-29 13:27] VITALS: BP 185/89; PULSE 76; RESP 16; O2SAT 97; BMI 25.9
--- NOTE | 2024-03-29 13:48 | P.CONAN_ITS ---
Documented by User: Julia Fallon NP 04/05/24 14:14 HPI - Anesthesia Eval Consult details Narrative: 63yo M for L2-3, L3-4 OLIF (poss. TKLIF), 04/07/24 No recent illness No CP/SOB with limited activity d/t pain BP up at PAT. Noted elevated during ED visit. All with severe back pain. Pt monitors BP at home with lower values (~150/80 prior to arrival for PAT). Instructed to monitor and log BP at home and bring DOS. Also encouraged to notify PCP if values remain high postop. PMFSH Active Problems Active Problems: All Active Problems Lumbar radiculopathy, acute (Acute) Scoliosis of lumbar region due to degenerative disease of spine in adult (Acute) Physical exam (Acute) Hyperlipidemia (Acute) Hypertension (Acute) Past Medical History Medical History (Updated 02/13/24 @ 16:00 by Joel Brown MD, PhD) Back pain Hyperlipidemia Hypertension Family History Family History Father Past heart attack Mother No problems noted. Brother Hypertension CAD (coronary artery disease) Family history of problems with anesthesia: No Surgical History Surgical History (Updated 03/29/24 @ 13:46 by Holly Forde RN) Hx of colonoscopy History of lumbar discectomy History of appendectomy History of Problems with Anesthesia: No Social History Social History Housing: House Are you a primary veterinarian laboratory animal care to a significant other at home: No Do you presently have visiting nurse or other home services: No Patient Tobacco Use Status: Former Tobacco user Tobacco use type: Cigar e-Cigarette/Vaping Use: Never Used Second Hand Smoke Exposure: Yes service: No Current occupational status: employed Cognitive needs: No Hearing needs: No Vision needs: Yes (glasses) Meds Allergies Allergy/AdvReac Type Severity Reaction Status Date / Time No Known Allergies Allergy Verified 04/07/24 06:43 Home Medications ?Medication ?Instructions ?Recorded ?Confirmed ?Last Taken ?Type gemfibrozil 600 mg tablet 600 mg PO DAILY 03/29/24 03/29/24 Unknown History diazepam 5 mg tablet 5 mg PO TID PRN muscle spasm 04/05/24 04/05/24 04/07/24 05:15 History Exam Height,Weight and Vital Signs: Height 6 ft Weight 86.636 kg Last Vital Signs Pulse 76 03/29/24 13:27 Resp 16 03/29/24 13:27 BP 185/89 H 03/29/24 13:27 Pulse Ox 97 03/29/24 13:27 O2 Del Method Room Air 03/29/24 13:27 Pertinent Lab Results Pertinent Lab Results: Laboratory Tests 02/26/24 08:35 WBC 6.7 Hgb 14.5 Hct 42.4 Plt Count 252 Sodium 144 Potassium 4.7 Chloride 107 Carbon Dioxide 28 BUN 23 H Creatinine 1.22 Narrative Narrative: EKG 03/2024 Vent. Rate : 73 BPM Atrial Rate : 73 BPM P-R Int : 178 ms QRS Dur : 88 ms QT Int : 388 ms P-R-T Axes : 78 56 69 degrees QTcB Int : 427 ms Normal sinus rhythm Normal ECG No previous ECGs available Airway Mallampati Class: II TM Dist: >3cm Neck ROM: Full Loose/Missing/Broken Teeth: No (Molars crowned) Heart: RRR Lungs: CTAB Assessment and Plan Assessment Anesthesia Assessment: Anesthesia Plan Discussed and PAT Visit Final Anesthetic Review Family History of Problems with Anesthesia: No History of Problems with Anesthesia: No Documented by User: Mignon Dalton MD 04/07/24 07:01 [facility] Past Medical History Medical History (Updated 02/13/24 @ 16:00 by Joel Brown MD, PhD) Back pain Hyperlipidemia Hypertension Family History Family History Father Past heart attack Mother No problems noted. Brother Hypertension CAD (coronary artery disease) Surgical History Surgical History (Updated 03/29/24 @ 13:46 by Holly Forde RN) Hx of colonoscopy History of lumbar discectomy History of appendectomy Social History Social History Housing: House Are you a primary veterinarian laboratory animal care to a significant other at home: No Do you presently have visiting nurse or other home services: No Patient Tobacco Use Status: Former Tobacco user Tobacco use type: Cigar e-Cigarette/Vaping Use: Never Used Second Hand Smoke Exposure: Yes service: No Current occupational status: employed Cognitive needs: No Hearing needs: No Vision needs: Yes (glasses) Meds Allergies Allergy/AdvReac Type Severity Reaction Status Date / Time No Known Allergies Allergy Verified 04/07/24 06:43 Home Medications ?Medication ?Instructions ?Recorded ?Confirmed ?Last Taken ?Type gemfibrozil 600 mg tablet 600 mg PO DAILY 03/29/24 03/29/24 Unknown History diazepam 5 mg tablet 5 mg PO TID PRN muscle spasm 04/05/24 04/05/24 04/07/24 05:15 History Assessment and Plan Assessment Anesthesia Assessment: Chart Reviewed Final Anesthetic Review NPO: Yes ASA Class: II Final Preanesthetic Review: No Changes in Pt Med Stat, Meds/Allgs Chart Reviewed, Consent Obtained/Reviewed and Anes Risks/Benef Reviewed Patient Risk: Low Procedure Risk: Intermediate Anesthetic Plan Anesthetic Plan: GA Disposition: Standard PACU
[2024-04-07] VITALS (21 sets, daily range): BP systolic 130–172; BP diastolic 42–95; PULSE 72–109; RESP 13–20; TEMP 36.1–37.1; O2SAT 93–100; BMI 25.9
--- NOTE | ~2024-04-07 | FL_ITS ---
EXAMINATION: XR FLUOROSCOPY WITH IMAGES CLINICAL INFORMATION: L2-3, L3-4 OLIF COMPARISON: Radiographs dated 02/13/2024. TECHNIQUE: Fluoroscopy provided to: Dr. Brown Fluoroscopy time: 2 minutes 39 seconds DAP: 28.76 mGycm2 Images: 6 FINDINGS: 6 spot images of the lumbar spine obtained during L2-3 and L3-4 instrumented fusion. Please refer to the full operative report for details. FL/FL guidance in OR IMPRESSION: Fluoroscopic guidance. Electronically signed by: Jesús Richard MD 04/07/2024 01:56 PM [facility] [place]
[2024-04-07] MEDS: Gabapentin 300 MG CAPSULE PO ×3 (06:53→20:28)
[2024-04-07] MEDS: Lactated Ringers 1,000 ML 100 ML IVCONT (06:53)
[2024-04-07] MEDS: methocarbamoL 750 MG TABLET PO ×2 (06:53→15:08)
--- NOTE | 2024-04-07 06:56 | P.HPSUR_ITS ---
Pre-Procedural Eval Section A - 24 Hr Update-Section A only Date of Service: 04/07/24 Section B - Complete if H&P > 30 days Chief Complaint: s/p L2-4 OLIF Allergies: Allergies Allergy/AdvReac Type Severity Reaction Status Date / Time No Known Allergies Allergy Verified 04/07/24 06:43 Review of Systems Sugical H&P ROS: Negative: Constitution, Cardiovascular, Respiratory, Neurol ogical, Psychiatric, Hem-Onc, Allergic/Immunologic, Gastrointestinal, Genitourinary, Musculoskeletal, Integumentary, Endocrine and Eyes/Ears/Nose/Throat Exam Surgical H&P Exam: Not Evaluated: HEENT, Not Evaluated: Heart, Not Evaluated: Lungs, Not Evaluated: Extremities, Not Evaluated: Abdomen, Not Evaluated: Skin and Not Evaluated: Neurological Exam Comment: The patient is awake, alert, no acute distress. Proposed surgical incision site is clean dry with no signs of recent surgery or trauma. Plan Diagnosis/Plan: Unchanged I have reviewed the history and physical and performed a pertinent physical examination on my patient. No changes have occurred unless specified. Plan remains the same, L2-3, L3-4 OLIF. Possible conversion to transkambin approach. Time Spent With Patient Time: Total time managing care of this patient today _15___ minutes.
--- OUTSIDE RECORDS SUMMARY | 2024-04-07 07:10 | XMS_ITS | Continuity of Care Document ---
Author Organization [facility] ter Address [address] [place] [id number] Care Team Providers Care Social Media Marketing Analyst Name Role Phone Edin Leonard MD Primary Care Physician Encounter [facility] [place] Date(s): 02/04/24 - 03/24/[address] [address] Attending Physician: Brijesh Schofield MD Admitting Physician: Brijesh Schofield MD Referring Physician: Brijesh Schofield MD Encounter Type: Pre-Outpt Allergies, Adverse Reactions, Alerts No Known Allergies Medications Flomax 0.4 mg oral capsule See Instructions, 1 capsule By Mouth Daily for 5 days or until the stone has passed, # 5 tablet, 0 Refills, Maintenance, 02/06/14 1:35:30 AM EST, Capsule Start Date: 02/06/14 Status: Ordered Quantity: 5.0 Unit: tablet Repeat number: 1 ibuprofen 800 mg oral tablet 1 tablet = 800 mg, By Mouth, 4 times a day, # 20 tablet, 0 Refills, Maintenance, 02/06/14 1:35:15 AM EST, Tablet Start Date: 02/06/14 Stop Date: 02/11/14 Status: Ordered Quantity: 20.0 Unit: tablet Repeat number: 1 Medrol Dosepak 4 mg oral tablet per label intructions, By Mouth, Once, # 1 units, 0 Refills, Soft Stop, 01/03/17 12:03:55 AM EDT Start Date: 01/03/17 Status: Ordered Quantity: 1.0 Unit: Units Repeat number: 1 Percocet-5/325 325 mg-5 mg oral tablet 1 tablet, By Mouth, Every 4 hours, PRN Pain , Moderate, # 18 tablet, 0 Refills, Maintenance, 12/10/12 9:35:54 AM EDT Start Date: 12/10/12 Stop Date: 12/13/12 Status: Ordered Quantity: 18.0 Unit: tablet Repeat number: 1 Patient Care team information Care Team Personnel Name: Horacio PEREZ, Edin De La Garza Position: Reference Physician Member Role: PCP Address: [address] [place] [address] Telecom: Care Team Related Persons Name: LINO COHEN Insurance Providers Guarantor name: SAUMYA COHEN Health Plan Information #: 1 Payer: [facility] FF NON P HMO Member Number: [id number] Policy Number: NA Group Number: [id number] Health Plan Information #: 2 Payer: [facility] FF NON BHP HMO Member Number: [id number] Policy Number: NA Group Number: [id number]
--- OUTSIDE RECORDS SUMMARY | 2024-04-07 07:10 | XMS_ITS | Patient Health Record ---
Author Organization [facility] Address [address] [place] [address] Care Team Providers Care Bleach Range Operator Name Role Phone Horacio PEREZ, Edin Primary Care Provider Fabián Abreu Unavailable [phone] ALLERGIES No Known Allergies REASON FOR REFERRAL No Information MEDICATIONS Medication SIG (Take, Route, Frequency, Duration) Notes Start Date End Date Status Gemfibrozil 600 MG Oral for 90 Active Celecoxib 200 MG Oral for 90 A ctive Atorvastatin Calcium 10 MG Oral for 90 Active hydroCHLOROthiazide 25 MG Oral for 90 Active Atenolol Active traMADol HCl Active IMMUNIZATIONS Vaccine Route Administration Date Status Comme nts Influenza Unknown 11/08/2021 Administered SOCIAL HISTORY Sex Assigned At : Social History Observation Description Sex Assigned At Unknown Alcohol Screen Question Answer Notes Did you have a drink containing alcohol in the p ast year? No Points 0 Interpretation Negative PROBLEMS Problem Type ICD Code Onset Dates Problem Status W/U Status Risk SNOMED Code Notes Problem Colon cancer screening (Z12.11) Active confirmed 818045604 Problem Diverticulosis of large intestine without perforation or abscess without bleeding (K57.30) Active confirmed Diverticul ar disease of colon (842273216) Problem Preprocedural examination (Z01.818) Active confirmed [id number] PLAN OF TREATMENT Future Test Test Name Order Date COLONOSCOPY 08/12/2012 COLONOSCOPY 05/29/2022 Insurance Providers Payer Name Payer Address Payer Phone Subscriber Number Group Number Insured Name Patient Relationship to Insured Coverage Start Date Coverage End Date [facility] [address] [place] [phone] [id number] SAUMYA COHEN Self - patient is the insured MEDICAL (GENERAL) HISTORY Medical History History ICD Code HTN Elevated cholesterol Back pain Denies [place],DM,CVA,Lung disease,renal dise ase Negative screening colonoscopy in 10/2012 Surgical History Surgery Date(Month/Year) Lower back for disc disease Appy
--- NOTE | 2024-04-07 10:26 | P.OP_ITS ---
Operative Note Operative Note Date of Service: 04/07/24 Narrative: Preop Diagnosis: 1.) Lumbar degenerative scoliosis 2.) Back pain and lumbar radiculopathy Procedure: 1) L2-3, L3-4 discectomy, arthrodesis and implantation cage through an anterolateral, retroperitoneal approach 2) L2-L4 posterior instrumented fusion 3) allograft 4)Injection of 10 cc of Exparel at the bilateral L3 transverse process for a muscular erector spinae block and additional Exparel in paravertebral tissue for postop management Consent Informed Consent was obtained for this operation. I have explained the nature, purpose and benefits of the operation. I have discussed the risks and benefit of the operation including possible complications or adverse events with patient/family. Alternative(s) were discussed with the patient with their relative benefits and risks as well as the consequences of not accepting the operation were included in obtaining consent. Surgeon: ANGELO SEARS MD, PHD Procedure Assisted By: Mauricio Malave PA-C Description of Procedure This 64-year-old male suffering from back pain and lumbar radiculopathy due to a lumbar degenerative scoliosis at L3-4 and L2-3. The patient was offered an oblique lumbar interbody fusion L2-3, L3-4 to correct the scoliosis. The proced ure complications were explained. The patient was consented. The patient was brought to the operating room and endotracheally intubated. The patient was turned in a lateral position with the left side up. Prep and drape was done followed by timeout. A small incision was made in the left lower abdominal quadrant. The muscle fascia was opened after which the 3 muscle layer was split to enter the retroperitoneal space. Dilators were docked in the anterior one third of the L3-4 disc space followed by a retractor. The retractor was opened. The L3-4 disc space was exposed. An annulotomy was done after which an elevator Vega was used to release the disc material from its endplates and to perforate the contralateral side. A partial discectomy was done. An 8 mm height trial implant was inserted. The discectomy was completed. The endplates were prepared. An 50 x 8 mm with 0 degree lordosis 4 web cage filled with allograft was inserted into the disc space under fluoroscopic guidance. This resulted in partial correction of the scoliotic curve.The retractor was removed and reinserted over the L2-3 level under fluoroscopic guidance. A similar procedure was done at this level and after an 8 mm and 10 mm trials were inserted and preparation of the endplates, a 50 x 10 mm with 0 degree lordosis 4 web cage filled with allograft was inserted into the disc space under fluoroscopic guidance. This produced a near complete alignment of the coronal plane of the lumbar spine. The retractor was removed. Hemostasis was done. The incision was closed in 2 layers. Steri-Strips used to approximate incision. An OpSite with Tegaderm was used to cover the incision. This marked first part of the procedure. The patient was turned prone on the [place] spine table. 2C arms were installed for fluoroscopy. Prep and drape was done followed by a second timeout. Injection of 10 cc of Exparel at the bilateral L3 transverse process for a muscular erector spinae block. Paramedian incisions were made lateral from the L2 to L4 pedicles bilaterally. The muscle fascia was opened after which the muscle layer was split bluntly to expose the posterolateral gutter. The following steps were taken. A pediguard tap was used to create a transpedicular trajectory into the vertebral body. A K wire was placed. A specially designed instrument was advanced over the K wire to decorticate the posterolateral gutter in preparation for the posterolateral fusion. A pedicle screw was advanced over the K wire and the K wire was removed. The steps were done for the bilateral L2, L3 and L4 pedicles. A total of 6 screws were placed with a diameter of 6.5 x 45 mm. Pedicle screws were connected with 85 mm ken on the left side and a 90 mm ken on the right side. The L3 and L4 screws were locked down with locking caps. A compression device was used to give compression of the L2-3 segment for complete correction in the coronal plane. Then the L2 screws bilaterally were locked down with locking caps. The extension towers were removed. The posterolateral gutter was filled with allograft to complete the posterolateral L2-L4 fusion Hemostasis was done and the incision was closed in 2 layers. Steri-Strips were used to approximate the incision. An OpSite were taken and was used to cover the incision. All sponge and needle counts were correct. Patient was extubated and transferred in stable is to recovery room. Anesthesia: General Estimated Blood Loss (ml): 25 mL Duration of Surgery: 2 hours 30 minutes Complications: None Postoperative Plan: Admit to inpatient for observation
[2024-04-07] MEDS: fentaNYL citrate/PF 100 MCG/2 ML VIAL 50 MCG IVPUSH ×4 (11:12→11:33)
[2024-04-07] MEDS: HYDROmorphone HCl 0.5 MG/0.5 ML SYRINGE 0.25 MG IVPUSH ×4 (12:09→12:30)
[2024-04-07] MEDS: Morphine Sulfate Immed Release 15 MG TABLET PO (13:45)
[2024-04-07] MEDS: 0.9 % Sodium Chloride 1,000 ML 75 ML IVCONT (13:49)
[2024-04-07] MEDS: ceFAZolin Sodium/Dextrose,Iso 2 GM/50 ML PIGGYBACK IV ×2 (13:57→19:23)
--- NOTE | 2024-04-07 14:07 | PHA.MEDREC ---
Pharmacy Consult ? Medication Reconciliation Pharmacy has completed the medication reconciliation, spoke to patient at bedside who confirmed all medications. Stated he is supposed to be taking gemfibrozil BID but has been taking it once daily but will probably go back to taking it twice . Also stated he is not taking diazepam regularly but left it on as he stated he did take it this morning.
[2024-04-07] MEDS: Acetaminophen 325 MG TABLET 975 MG PO ×2 (14:15→21:18)
[2024-04-07] MEDS: Ketorolac Tromethamine 15 MG/ML VIAL IVPUSH ×2 (14:21→21:17)
[2024-04-07] MEDS: HYDROmorphone HCl 1 MG/ML SYRINGE IVPUSH ×2 (15:41→20:26)
[2024-04-07] MEDS: Docusate Sodium 100 MG CAPSULE PO (20:28)
[2024-04-08] MEDS: HYDROmorphone HCl 1 MG/ML SYRINGE IVPUSH ×3 (00:31→11:11)
[2024-04-08] MEDS: ceFAZolin Sodium/Dextrose,Iso 2 GM/50 ML PIGGYBACK IV (01:25)
[2024-04-08] MEDS: methocarbamoL 750 MG TABLET PO ×2 (01:32→08:31)
[2024-04-08] MEDS: 0.9 % Sodium Chloride 1,000 ML 75 ML IVCONT (03:26)
[2024-04-08 04:00] VITALS: BP 144/67; PULSE 84; RESP 18; TEMP 36.6; O2SAT 95
[2024-04-08] MEDS: Ketorolac Tromethamine 15 MG/ML VIAL IVPUSH (05:08)
[2024-04-08] MEDS: Acetaminophen 325 MG TABLET 975 MG PO (05:09)
[2024-04-08] MEDS: Morphine Sulfate Immed Release 15 MG TABLET PO (07:23)
[2024-04-08 07:55] VITALS: BP 144/67; PULSE 84; O2SAT 95
[2024-04-08 08:00] VITALS: BP 128/69; PULSE 78; RESP 16; TEMP 36.7; O2SAT 95
[2024-04-08] MEDS: Atorvastatin Calcium 10 MG TABLET PO (08:30)
[2024-04-08] MEDS: Docusate Sodium 100 MG CAPSULE PO (08:31)
[2024-04-08] MEDS: Gabapentin 300 MG CAPSULE PO (08:31)
[2024-04-08] MEDS: atenoloL 50 MG TABLET PO (08:31)
[2024-04-08] MEDS: gemfibroziL 600 MG TABLET PO (08:33)
--- NOTE | 2024-04-08 08:39 | HO.POSTANES ---
Post Anesthesia Evaluation Post Anesthesia Evaluation Date of Service: 04/08/24 Vital Signs: Vital Signs Temp Pulse Resp BP Pulse Ox O2 Del Method 04/08/24 08:00 98.1 F 78 16 128/69 95 Room Air 04/08/24 07:55 84 144/67 H 95 04/08/24 04:00 97.9 F 84 18 144/67 H 95 Room Air Anesthesia: General Endotracheal-GETA Mental Status: Awake Pain Control: Satisfactory Nausea/Vomiting: None Hydration: Adequate Anesthesia-Related Issues: No Anes. Related Issues
--- NOTE | 2024-04-08 09:47 | MHC.CM.PN ---
CM MET WITH PT AT BEDSIDE. PT LIVES WITH SPOUSE AND IS FUNCTIONALLY INDEPENDENT. NO SERVICES/DME. PT DECLINES COMPLETING A HCP AT THIS TIME. PCP DR. MICHAELS AT [facility] [place]. DP: HOME , NO SERVICES ANTICIPATED. [facility] WILL TRANSPORT HOME. CM WILL CONTINUE TO FOLLOW FOR ANY CHANGE TO DC PLAN.
--- NOTE | 2024-04-08 10:37 | PM.DS ---
DS: Providers Provider Date of Service: 04/08/24 Date of admission: 04/07/24 06:43 Date of discharge: 04/08/24 Primary care physician: Edin Leonard MD DS: Summary Time Attestation Discharge Coordination Time (in mins): 16 Quality: Safe Use of Opioids Does Pt have an Active Cancer Diagnosis on the Problem List?: No Quality: Stroke Does the patient have a stroke diagnosis?: No Physical Exam Vital Signs: Vital Signs: Last Vital Signs Temp 98.1 F 04/08/24 08:00 Pulse 78 04/08/24 08:00 Resp 16 04/08/24 08:00 BP 128/69 04/08/24 08:00 Pulse Ox 95 04/08/24 08:00 O2 Del Method Room Air 04/08/24 08:00 O2 Flow Rate 2 04/07/24 13:22 BMI result Body Mass Index 25.9 Discharge Plan Discharge Anticipated Discharge Date/Time: 04/08/24 10:38 Patient Disposition: Home, Self-Care Discharge Diagnosis: S/P l2-3, l3-4 olif Referrals: Edin Leonard MD [Primary Care Provider] - 1 Week Discharge Medications: New hydromorphone 4 mg tablet See Rx Instructions .ROUTE .COMPLEX PRN (Reason: breakthrough pain) Qty: 14 0RF Rx Instructions: Take 1/2 tablet every 6 hours as needed Continued atenolol 50 mg tablet 50 mg PO DAILY Qty: 90 8RF celecoxib 200 mg capsule 200 mg PO DAILY Qty: 90 8RF atorvastatin 10 mg tablet 10 mg PO DAILY Qty: 90 3RF tramadol 50 mg tablet 50 mg PO Q6H PRN (Reason: pain) 30 Days Qty: 360 0RF morphine 15 mg tablet 15 mg PO Q6H PRN (Reason: pain) Qty: 14 0RF Rx Instructions: partial fill okay; Partial Fill upon patient request. gemfibrozil 600 mg tablet 600 mg PO DAILY diazepam 5 mg tablet 5 mg PO TID PRN (Reason: muscle spasm) Discharge Orders: Discharge Order (Routine); Ordered 04/08/24 Ordered By: Mauricio Malave Diet: Advance to usual diet Activity on Discharge: As tolerated Stand Alone Forms: Patient Portal Discharge page Print Language: Jordanian Activity Restrictions/Additional Instructions: After your spinal surgery we ask you to observe the following restrictions/guidelines: Activity: It is normal to feel some discomfort as you increase your activity, but that will improve with time. We ask you avoid heavy lifting or acitivities that cause pain. As a general rule, 8lbs is a safe limit for lifting right after surgery. Walk as much as you feel comfortable but not to exhaustion. You will feel extra tired the first few days after surgery. Stay well hydrated. It is OK to walk up and down stairs You may return to driving when you are off narcotics (such as vicodin, oxycodone, dilaudid, etc), and you are back to normal functional capacity. If you have any concerns please check with office before driving. Return to work is specific to each patient and each surgery, so please speak with your doctor/PA at first follow up. Please bring paperwork such as FMLA at that time if you need it filled out. Medications: We recommend you take 1,000mg Tylenol every 8 hours for the first few weeks after surgery, if you do not have any liver issues and can tolerate this medication. Do not exceed 4,000mg daily. We will give you a short supply of narcotics after surgery (usually one weeks worth). If you need more please call the office but do not use more than prescribed. You will need to give our office 48 hours notice if you need narcotics refilled and we do not fill narcotics on weekends or evenings. If you are on a narcotic, it is a good idea to take a stool softener such as colace or senna to avoid constipation If you take blood thinner such as aspirin, Plavix, Coumadin, Effient, Eliquis etc for conditions such as Afib, DVT, Pulmonary embolus, coronary disease, stents etc please speak with your surgeon about specific details as to when you can resume these medications. You can resume NSAIDs on post op day 1 (eg: Motrin, Naproxen, etc). Follow up: Please call the office, , after surgery to arrange a 3 week follow up for wound check. Wound Care: You may remove your dressing on the first day after surgery. ?You may ?leave open to air. Please do not remove the steri strips underneath. they will fall off on their own in one week. IT IS NORMAL FOR THE WOUND TO OOZE OR BE BLOODY FOR A FEW DAYS AFTER SURGERY. ?IF THIS HAPPENS JUST PLACE NEW DRESSING OVER IT TO AVOID STAINING CLOTHES. You may shower on post op day # 1 We ask that you do not let the water soak the wound. If it does get wet, just towel dry lightly. Please do not scrub your incision or place any type of chemical/ointment on the wound. No tub baths, pools or jacuzzis for one month. If you have any leaking or redness from your wound, or fevers, please call the office. Care Plan Goals: Return to normal activity as tolerated Health Concerns: none Plan of Treatment: follow-up in clinic in 2-3 weeks. Assessment: Patient is progressing normally, meets medical criteria to be discharged home.
--- NOTE | 2024-04-08 10:43 | HO.NEURO.PN ---
Neurosurgery Operative Note Date of Service: 04/08/24 Narrative: POD: 1 Procedure: L2-3, L3-4 OLIF Miguelangel is a pleasant 63 year old male who is POD:1 s/p l2-3, l3-4 OLIF. Patient reports he is up walking around is otherwise doing well. He feels his symptoms are much better than pre-operatively. His current pain regimen is providing him with good relief of his pain. He did have quite a difficult time with pain control directly after surgery however this was mitigated well with Dilaudid. He is voiding well, tolerating diet. Afebrile, vital signs stable. Full strength 5/5 UE / LE. Back dressings have some staining without signs of hematoma. No active sanguineous drainage. Area is dry. Plan: Patient meets criteria to be medically discharged home. He was seen at bedside with Dr. Brown. I will send in a prescription of Dilaudid to his pharmacy to take 2 mg every 6 hours as needed for breakthrough pain secondary to his morphine prescription. Mauricio Brown MD,PhD [facility]
--- NOTE | 2024-04-08 10:44 | MHC.CM.PN ---
Patient medically cleared for dc home self care via private transport.
== END 2024-04-08 12:59 | disposition home or self-care (01) | DRG 304 ==
LOC: HO.SSSA 07:07 → HO.S3 11:46
PROVIDERS: Neurological Surgery; Admitting Provider Physician Assistant; PCP Internal Medicine; Visit Provider Physician Assistant
PROC: 0SG10A0 Fusion of 2 or more Lumbar Vertebral Joints with Interbody Fusion Device, Anterior Approach, Anterior Column, Open Approach (ICD-10-PCS; principal; 2024-04-07 07:30)
DX: M51.16 Intervertebral disc disorders with radiculopathy, lumbar region (principal); E78.5 Hyperlipidemia, unspecified; I10 Essential (primary) hypertension; Z87.891 Personal history of nicotine dependence; Z79.899 Other long term (current) drug therapy
CPT/HCPCS: 86850; 86900; 86901; 93005; 97162; C1713; C1889; J0131; J0665; J0666; J0690; J1100; J1171; J1885; J2003; J2250; J2405; J2704; J3010; L8699

== ENCOUNTER → 2024-04-07 06:43 | Outpatient (BNV) | payer OTHER, SELFPAY | PROVIDERS: Admitting Provider Physician Assistant; PCP Internal Medicine; Visit Provider Neurological Surgery | DX: M54.16 Radiculopathy, lumbar region (principal); M41.86 Other forms of scoliosis, lumbar region | CPT/HCPCS: 20930; 22558; 22585; 22612; 22614; 22853; 99024; 99499 ==

== ENCOUNTER → 2024-04-14 14:25 | Outpatient (BNVA) | payer OTHER, SELFPAY | PROVIDERS: PCP Internal Medicine; Visit Provider Physician Assistant ==

== ENCOUNTER → 2024-04-16 07:51 | Outpatient (AMB) | payer OTHER, SELFPAY ==
--- OUTSIDE RECORDS SUMMARY | 2024-04-16 07:53 | XMS_ITS | Patient Health Record ---
Author Organization [facility] Address [address] [place] [address] Care Team Providers Care Cook House Laborer Name Role Phone Horacio PEREZ, Edin Primary Care Provider Fabián Abreu Unavailable [phone] ALLERGIES No Known Allergies REASON FOR REFERRAL [...] Problem Colon cancer screening (Z12.11) Active confirmed 385060746 Problem Diverticulosis of large intestine without perforation or abscess without bleeding (K57.30) Active confirmed Diverticul ar disease of colon (541380754) Problem Preprocedural examination (Z01.818) Active confirmed [id number] PLAN OF TREATMENT Future Test Test Name Order Date COLONOSCOPY 08/12/2012 COLONOSCOPY 05/29/2022 Insurance Providers Payer Name Payer Address Payer Phone Subscriber Number Group Number Insured Name Patient Relationship to Insured Coverage Start Date Coverage End Date [facility] [address] [place] [phone] [id number] SAUMYA COHEN Self - patient is the insured MEDICAL (GENERAL) HISTORY Medical History History ICD Code HTN Elevated cholesterol Back pain Denies [place],DM,CVA,Lung disease,renal dise ase Negative screening colonoscopy in 10/2012 Surgical History Surgery Date(Month/Year) Lower back for disc disease Appy
--- NOTE | 2024-04-16 08:08 | A.OFFPC_ITS ---
Vital Signs 3 04/16/24 08:12 Height 6 ft Weight 188 lb 8 oz BMI 25.6 BP 130/78 Blood Pressure Location Lt brachial Position Sitting Pulse 73 Pulse Source Pulse Oximeter Temp 97.1 F Temp Source Skin Pulse Oximetry (%) 97 Oxygen Delivery Method Room Air Intake Visit Reasons: D/C Appt Intake Note: Patient is here for hospital dischargeand TCM follow up. Patient was discharged from [facility] on 04/08/24. Cartridge Belt Puncher Required: No Drywall Hanger Framer: Not Required per policy Accompanied by: Self / Same As Patient Allergies No Known Allergies Allergy (Verified 04/16/24 08:12) Tobacco use date assessed: 04/16/24 Dental Screening Dental Screen Date: 04/16/24 Did you have a dental visit in the last 12 months?: Yes Did you have a dental problem in the last 6 months where you did not have access to dental care?: No Was dental information given to patient?: Patient has dentist HPI TCM 2 TCM Information0 Date of Discharge 04/08/24 Discharged From [facility] Interactive Contact Date (Reference documentation from this date) 04/13/24 HPI Comments 2 History of Present Illness0 Details 63 y/o male patient who presents to the clinic for HDF. He was admitted at [facility] on 04/07/24 and discharged home on 04/08/24, S/P L2-3, L3-4 discectomy, arthrodesis and implantation cage through an anterolateral, retroperitoneal approach. L2-L4 posterior instrumented fusion allograft. He is currently being managed by Neurosurgery. [facility] Medical History Back pain Hyperlipidemia Hypertension Surgical History (Updated 04/16/24 @ 08:16 by ANIA Vega) History of lumbar fusion Hx of colonoscopy History of lumbar discectomy History of appendectomy Family History (Updated 04/16/24 @ 08:09 by ANIA Vega) Father Past heart attack Mother No problems noted. Brother Hypertension CAD (coronary artery disease) Social History (Updated 04/16/24 @ 08:16 by ANIA Vega) Housing: House Are you a primary healthcare science specialist to a significant other at home: No Do you presently have visiting nurse or other home services: No Alcohol intake: never Patient Tobacco Use Status: Former Tobacco user Tobacco use type: Cigar e-Cigarette/Vaping Use: Never Used Second Hand Smoke Exposure: Yes service: No Current occupational status: employed Cognitive needs: No Hearing needs: No Vision needs: Yes (glasses) Questionnaire PHQ-9 Over the last 2 weeks, how often have you been bothered by any of the following problems? 1. Little interest or pleasure in doing things: not at all 2. Feeling down, depressed, or hopeless: not at all 3. Trouble falling or staying asleep, or sleeping too much: not at all 4. Feeling tired or having little energy: not at all 5. Poor appetite or overeating: not at all 6. Feeling bad about yourself - or that you are a failure or have let yourself or your family down: not at all 7. Trouble concentrating on things, such as reading the newspaper or watching television: not at all 8. Moving or speaking so slowly that other people could have noticed. Or the opposite - being so fidgety or restless that you have been moving around a lot more than usual: not at all 9. Thoughts that you would be better off or of hurting yourself in some way: not at all Total score: 0 Depression Screening Interpretation: Negative Depression Screening Done: Yes Source: Developed by Drs. Fabián Connolly, Danuta Andersen, Nate Thurman and colleagues, with an educational ev from [employer]. Thrive Questionnaire Date Thrive assessed: 04/16/24 I am a: Patient What is your living situation today?: I have a steady place to live Within the past 12 months, did the food you bought not last and you didn't have the money to get more?: Never true Within the past 12 months, did you worry whether your food would run out before you got money to buy more?: Never true Do you have trouble paying for medicines?: No Do you have trouble getting transportation to medical appointments?: No Do you have trouble paying your heating and electricity bill?: No Do you have trouble taking care of your child, family member or friend?: No Do you have trouble with day-to-day activities such as bathing, preparing meals, shopping, managing finances, etc.?: No Are you currently unemployed and looking for a job?: No Are you interested in more education?: No Please select the resources that you would like help with: None Currently or been in a relationship where the following occur: No concerns reported THRIVE Score: 0 AUDIT C Alcohol Use Questionnaire (AUDIT-C) 1. How often do you have a drink containing alcohol?: Never 3. How often do you have six or more drinks on one occasion?: Never Total Score: 0 ADA-7 AMB Questionnaire ADA-7 Date ADA - 7 assessed: 04/16/24 Feeling nervous, anxious, or on edge: 0 = Not at all Not being able to stop or control worryin = Not at all Worrying too much about different things: 0 = Not at all Trouble relaxin = Not at all Being so restless that it is hard to sit still: 0 = Not at all Becoming easily annoyed or irritable: 0 = Not at all Feeling afraid as if something awful might happen: 0 = Not at all Total ADA-7 score (0-4 normal; 5-9 mild; 10-14 moderate; 15-21 severe): 0 Source: Developed by Drs. Fabián Connolly, Danuta Andersen, Nate Thurman and colleagues, with an educational ev from [employer]. Review of Systems Const All systems reviewed & are unremarkable except as noted in HPI and below Physical exam (Primary Care) Vital Signs: Last Vital Signs Temp 97.1 F 04/16/24 08:12 Pulse 73 04/16/24 08:12 BP 130/78 04/16/24 08:12 Pulse Ox 97 04/16/24 08:12 Oxygen Delivery Method Room Air 04/16/24 08:12 BMI result Body Mass Index 25.6 Tobacco/Smoking Status: Tobacco use Status Tobacco use date assessed 04/16/24 04/16/24 08:17 Patient Tobacco Use Status Former Tobacco user 04/16/24 08:17 Tobacco use type Cigar 04/16/24 08:17 e-Cigarette/Vaping Use Never Used 04/16/24 08:17 PHQ-9: PHQ-9 Score PHQ-9: Total score 0 04/16/24 08:35 Depression Screening Interpretation: Negative Thrive Assessment: Date of Thrive Assessment Date Thrive assessed 04/16/24 04/16/24 08:17 Currently or been in a relationship where the following occur: No concerns reported Const General: cooperative, comfortable and no acute distress Orientation/consciousness: patient oriented x3 Resp Effort & Inspection: normal respiratory effort and able to speak in complete sentences Auscultation: clear to auscultation bilaterally Cardio Heart sounds: S1 normal heart sound present and S2 normal heart sound present Back/Spine/Pelvis Back/spine/pelvis image: 2 1. Surgical site ports covered with Steris, dry and non TTP. 2. Surgical site ports covered with Steris, dry and non TTP. Neuro General: patient oriented x3, gait normal and moves all extremities Coding Level of Care Code Est Pt Level 4 (97974) Diagnoses Scoliosis of lumbar region due to degenerative disease of spine in adult M41.56 Lumbar radiculopathy, acute M54.16 Time Spent (min) 20 Assessment & Plan Assessment & Plan (1) Scoliosis of lumbar region due to degenerative disease of spine in adult: Code(s): M41.56 - Other secondary scoliosis, lumbar region Category: Medical Plan: Managed by Neuro-surgery (2) Lumbar radiculopathy, acute: Code(s): M54.16 - Radiculopathy, lumbar region Category: Medical Plan: Managed by Neuro-surgery. Medications: Refilled 2 tramadol 50 mg PO Q6H PRN 360 tabs 0RF pain 30 days
== END | disposition home or self-care (01) ==
PROVIDERS: PCP Internal Medicine; Visit Provider Nurse Practitioner Family

== ENCOUNTER → 2024-04-16 07:51 | Outpatient (BNVA) | payer OTHER, SELFPAY | PROVIDERS: PCP Internal Medicine; Visit Provider Nurse Practitioner Family ==

== ENCOUNTER 2024-04-20 14:00 | Outpatient (AMB) | payer OTHER, SELFPAY ==
[2024-04-20 14:07] VITALS: BP 162/92; PULSE 72; TEMP 36.3; O2SAT 95; BMI 25.4
--- NOTE | 2024-04-20 14:07 | MHC.PC.OV ---
Vital Signs 04/20/24 14:07 Height 6 ft Weight 187 lb BMI 25.4 BP 162/92 H Blood Pressure Location Lt brachial Position Sitting Pulse 72 Pulse Source Pulse Oximeter Temp 97.3 F Temp Source Temporal Artery Scan Pulse Oximetry (%) 95 Oxygen Delivery Method Room Air Intake Visit Reasons: Anxiety Glass Cylinder Flanger Required: No Accompanied by: Self / Same As Patient Allergies No Known Allergies Allergy (Verified 04/20/24 14:10) Medication List - Last Reconciled 04/21/24 by Edin Leonard MD atenolol 50 mg PO DAILY atorvastatin 10 mg PO DAILY celecoxib 200 mg PO DAILY diazepam 5 mg PO TID PRN gemfibrozil 600 mg PO DAILY hydromorphone Take 1/2 tablet every 6 hours as needed lorazepam 1 mg PO Q6H PRN morphine 15 mg PO Q6H PRN tramadol 50 mg PO Q6H PRN 30 days Tobacco use date assessed: 04/16/24 Dental Screening Dental Screen Date: 04/16/24 HPI Anxiety HPI Details anxiety for a few months; recently had a lumbar fusion and doing well [facility] Medical History (Updated 04/21/24 @ 09:17 by Edin Leonard MD) Back pain Hyperlipidemia Hypertension Surgical History History of lumbar fusion Hx of colonoscopy History of lumbar discectomy History of appendectomy Family History Father Past heart attack Mother No problems noted. Brother Hypertension CAD (coronary artery disease) Social History Housing: House Are you a primary chronic care nurse to a significant other at home: No Do you presently have visiting nurse or other home services: No Alcohol intake: never Patient Tobacco Use Status: Former Tobacco user Tobacco use type: Cigar e-Cigarette/Vaping Use: Never Used Second Hand Smoke Exposure: Yes service: No Current occupational status: employed Cognitive needs: No Hearing needs: No Vision needs: Yes (glasses) Questionnaire Thrive Questionnaire Date Thrive assessed: 04/16/24 ADA-7 AMB Questionnaire ADA-7 Date ADA - 7 assessed: 04/16/24 Source: Developed by Drs. Fabián Connolly, Danuta B.W. Nate Andersen and colleagues, with an educational ev from [employer]. Review of Systems Const Denies chills, Denies headache(s) and Denies weight loss ENT Denies headache(s) Card Denies chest pain, Denies syncope, Denies irregular heart rhythm and Denies dyspnea Resp Denies chest congestion, Denies cough and Denies dyspnea GI Denies abdominal pain, Denies change in stool character, Denies nausea and Denies vomiting Musc Denies deformity and Denies joint swelling Neuro Denies syncope and Denies headache(s) Physical exam (Primary Care) Vital Signs: Last Vital Signs Temp 97.3 F 04/20/24 14:07 Pulse 72 04/20/24 14:07 BP 162/92 H 04/20/24 14:07 Pulse Ox 95 04/20/24 14:07 Oxygen Delivery Method Room Air 04/20/24 14:07 BMI result Body Mass Index 25.4 Tobacco/Smoking Status: Tobacco use Status Tobacco use date assessed 04/16/24 04/20/24 14:11 Patient Tobacco Use Status Former Tobacco user 04/20/24 14:11 Tobacco use type Cigar 04/20/24 14:11 e-Cigarette/Vaping Use Never Used 04/20/24 14:11 Thrive Assessment: Date of Thrive Assessment Date Thrive assessed 04/16/24 04/20/24 14:11 Const General: cooperative, comfortable, no acute distress and alert Neck Neck: Yes no lymphadenopathy Thyroid: Thyroid normal Resp Effort & Inspection: normal respiratory effort Auscultation: clear to auscultation bilaterally Percussion: percussion normal Cardio Jugular venous distension: no JVD Palpation: normal PMI Rate: regular rate Rhythm: regular rhythm Heart sounds: S1 normal heart sound present and S2 normal heart sound present GI Inspection: Yes normal to inspection Palpation (GI): No hepatosplenomegaly present Skin General skin exam: no rashes or lesions noted Extrem General: Yes no clubbing, cyanosis or edema Coding Level of Care Code Est Pt Level 3 (67356) Diagnoses Anxiety F41.9 Assessment & Plan Assessment & Plan (1) Anxiety: Code(s): F41.9 - Anxiety disorder, unspecified Category: Medical Plan: rx sent Medications: New lorazepam 1 mg PO Q6H PRN 60 tabs 1RF anxiety Refilled tramadol 50 mg PO Q6H PRN 360 tabs 0RF pain 30 days
--- OUTSIDE RECORDS SUMMARY | 2024-04-20 15:01 | XMS_ITS | Patient Health Record ---
Author Organization [facility] Address [address] [place] [address] Care Team Providers Care Sales Correspondence Clerk Name Role Phone Horacio PEREZ, Edin Primary Care Provider Fabián Abreu Unavailable [phone] ALLERGIES No Known Allergies REASON FOR REFERRAL [...] Problem Colon cancer screening (Z12.11) Active confirmed 328212830 Problem Diverticulosis of large intestine without perforation or abscess without bleeding (K57.30) Active confirmed Diverticul ar disease of colon (646041392) Problem Preprocedural examination (Z01.818) Active confirmed [id number] PLAN OF TREATMENT Future Test Test Name Order Date COLONOSCOPY 08/12/2012 COLONOSCOPY 05/29/2022 Insurance Providers Payer Name Payer Address Payer Phone Subscriber Number Group Number Insured Name Patient Relationship to Insured Coverage Start Date Coverage End Date [facility] [address] [place] [phone] [id number] SAUMYA COHEN Self - patient is the insured MEDICAL (GENERAL) HISTORY Medical History History ICD Code HTN Elevated cholesterol Back pain Denies [place],DM,CVA,Lung disease,renal dise ase Negative screening colonoscopy in 10/2012 Surgical History Surgery Date(Month/Year) Lower back for disc disease Appy
== END 2024-04-20 14:21 | disposition home or self-care (01) ==
PROVIDERS: PCP Internal Medicine; Visit Provider Internal Medicine
DX: F41.9 Anxiety disorder, unspecified (principal)

== ENCOUNTER → 2024-04-20 14:00 | Outpatient (BNVA) | payer OTHER, SELFPAY | PROVIDERS: PCP Internal Medicine; Visit Provider Internal Medicine ==

== ENCOUNTER 2024-05-04 14:13 | Outpatient (AMB) | payer OTHER, SELFPAY ==
--- NOTE | 2024-05-04 14:20 | A.SPINEOV_ITS ---
Intake Visit Reasons: 1st post op Intake Note: Mr. Sullivan is here today for his 1st post op. B2B Outside Sales Representative Required: No Allergies No Known Allergies Allergy (Verified 05/04/24 14:22) Assessment & Plan Assessment & Plan (1) S/P lumbar fusion: Code(s): Z98.1 - Arthrodesis status Category: Surgical Plan Procedure: L2-3, L3-4 OLLUCIA Means comes in today for his 1st postoperative appointment. To recap he was initially seen in clinic for severe low back pain and left radiculopathy. He called the clinic in regards to some concerns about bruising near the incision site. I put him on for an acute postop visit within 48 hours of his phone call. He reports that other than the bruising that has occurred on his back and lateral side, he has been doing very well since surgery. He still has some low back pain with the bulk of his radiculopathy has resolved. No new neurological deficits. The patient has a small amount of bruising on his back near the incision site, but overall it appears well healing with no signs of tenderness or excessive edema. I would like to follow up with Miguelangel again in 6 weeks for 2nd postoperative visit. At that time we will obtain a set of x-rays. Mauricio Brown MD,PhD [facility] Coding Level of Care Code Global (46459) Diagnoses S/P lumbar fusion Z98.1
--- OUTSIDE RECORDS SUMMARY | 2024-05-04 17:49 | XMS_ITS | Patient Health Record ---
Author Organization [facility] Address [address] [place] [address] Care Team Providers Care Senior Materials Analyst Name Role Phone Horacio PEREZ, Edin Primary Care Provider Fabián Abreu Unavailable [phone] ALLERGIES No Known Allergies REASON FOR REFERRAL [...] Problem Colon cancer screening (Z12.11) Active confirmed 150106598 Problem Diverticulosis of large intestine without perforation or abscess without bleeding (K57.30) Active confirmed Diverticul ar disease of colon (526571935) Problem Preprocedural examination (Z01.818) Active confirmed [id number] PLAN OF TREATMENT Future Test Test Name Order Date COLONOSCOPY 08/12/2012 COLONOSCOPY 05/29/2022 Insurance Providers Payer Name Payer Address Payer Phone Subscriber Number Group Number Insured Name Patient Relationship to Insured Coverage Start Date Coverage End Date [facility] [address] [place] [phone] [id number] SAUMYA COHEN Self - patient is the insured MEDICAL (GENERAL) HISTORY Medical History History ICD Code HTN Elevated cholesterol Back pain Denies [place],DM,CVA,Lung disease,renal dise ase Negative screening colonoscopy in 10/2012 Surgical History Surgery Date(Month/Year) Lower back for disc disease Appy
== END 2024-05-04 14:47 | disposition home or self-care (01) ==
PROVIDERS: PCP Internal Medicine; Visit Provider Physician Assistant
DX: Z98.1 Arthrodesis status (principal)
CPT/HCPCS: 99024

== ENCOUNTER 2024-06-15 12:03 | Outpatient (REF) | payer OTHER, SELFPAY ==
--- NOTE | ~2024-06-15 | XR_ITS ---
CLINICAL HISTORY: Z98.1 - Arthrodesis status Four views of the lumbar spine. COMPARISON: None FINDINGS: Five [id number]-snbicgl lumbar type vertebral bodies. Mild leftward curvature of the lower lumbar spine. Posterior spinal fixation hardware with intervertebral disc spacer present at L2-3 and L3-4. No evidence of hardware loosening or failure. No spondylolisthesis with flexion or extension imaging. Loss of disc space height, and facet joint arthrosis present at L4-5 and L5-S1. Marginal osteophytes present throughout the mid to lower lumbar spine. Visualized portions of the bones of the pelvis appear intact. IMPRESSION: 1. Mild leftward curvature of the lower lumbar spine. 2. Posteriorly fixated L2 through L4 levels without evidence of hardware complication. 3. [id number]-iclnbcbh degenerative changes of the lower lumbar spine. This document has been electronically signed by: Adelso Bates MD on 06/16/2024 13:03:47
--- OUTSIDE RECORDS SUMMARY | 2024-06-15 14:41 | XMS_ITS | Patient Health Record ---
Author Organization [facility] Address [address] [place] [address] Care Team Providers Care Ux Lead Name Role Phone Edin Leonard MD Primary Care Provider Fabián Abreu Unavailable [phone] Allergies No Known Allergies Reason For Referral No Information Medications Medication SIG (Take, Route, Frequency, Duration) Notes Start Date End Date Status Gemfibrozil 600 MG Oral for 90 Active Celecoxib 200 MG Oral for 90 A ctive Atorvastatin Calcium 10 MG Oral for 90 Active hydroCHLOROthiazide 25 MG Oral for 90 Active Atenolol Active traMADol HCl Active Immunizations Vaccine Route Administration Date Status Comme nts Influenza Unknown 11/08/2021 Administered Social History Alcohol Screen Question Answer Notes Did you have a drink containing alcohol in the p ast year? No Points 0 Interpretation Negative Section Notes: Nonsmoker, except cigars whi le golfing; occ alcohol Nonsmoker, except cigars whi le golfing; No ETOH Problems Problem Type SNOMED Code ICD Code Onset Dates Problem Status W/U Status Risk Notes Problem 120993832 Colon cancer screening (Z12.11) Active confirmed Problem Diverticular disease of colon (620716502) Diverticulosis of large intestine without perforation or abscess without bleeding (K57.30) Active confirmed Problem [id number] Preprocedural examination (Z01.818) Active confirmed Plan Of Treatment Future Test Test Name Order Date COLONOSCOPY 08/12/2012 COLONOSCOPY 05/29/2022 Insurance Providers Payer Name Payer Address Payer Phone Subscriber Number Group Number Insured Name Patient Relationship to Insured Coverage Start Date Coverage End Date [facility] [address] [facility] [place] [place] [phone] [id number] SAUMYA COHEN Self - patient is the insured Medical (General) History Medical History History ICD Code HTN Elevated cholesterol Back pain Denies [place],DM,CVA,Lung disease,renal dise ase Negative screening colonoscopy in 10/2012 Surgical History Surgery Date(Month/Year) Lower back for disc disease Appy
== END 2024-06-15 12:04 | disposition home or self-care (01) ==
LOC: HO.HOSX 12:03
PROVIDERS: Visit Provider Physician Assistant
DX: Z98.1 Arthrodesis status (principal)
CPT/HCPCS: 72110

== ENCOUNTER 2024-06-15 13:27 | Outpatient (AMB) | payer OTHER, SELFPAY ==
--- NOTE | 2024-06-15 13:30 | HO.SPINEOV ---
Intake Visit Reasons: 2md post op with Xrays Intake Note: Mr. Sullivan is here today for his 2nd post op with x-rays. Medical Records Analyst Required: No Allergies enalapril Adverse Reaction (Intermediate, Verified 08/09/24 14:17) cough Assessment & Plan Assessment & Plan (1) S/P lumbar fusion: Comment: 03/2024 Code(s): Z98.1 - Arthrodesis status Category: Surgical Plan Procedure: L2-3, L3-4 OLIF Miguelangel comes in today for his second postoperative visit. He reports that he is doing very good since his surgery. He has almost complete pain relief, and has been essentially back to regular activity. He is working in the yd and completing ADLs without significant issue. We reviewed his x-ray imaging obtained during this visit which shows stable placement of the surgical construct no changes from fluoroscopy. No new neurological deficits, the patient ambulates well and rises from a seated position without difficulty. I would like to order a CT scan for Miguelangel to be completed about 2 months out from surgery, we will follow up with him 1 year out from surgery reports last follow-up visit. Mauricio Brown MD,PhD [facility] Orders: Orders CT lumbar spine wo IV con 01/17/25 Z98.1 - Arthrodesis status XR lumbar spine 4V min 06/15/24 Z98.1 - Arthrodesis status Coding Level of Care Code Global (29383) Diagnoses S/P lumbar fusion Z98.1
== END 2024-06-15 13:59 | disposition home or self-care (01) ==
LOC: HO.HNS 13:27
PROVIDERS: PCP Internal Medicine; Visit Provider Physician Assistant
DX: Z98.1 Arthrodesis status (principal)
CPT/HCPCS: 99024

== ENCOUNTER → 2024-06-15 13:30 | Outpatient (BNV) | payer OTHER, SELFPAY | PROVIDERS: Visit Provider Radiology Diagnostic Radiology | DX: M51.369 Other intervertebral disc degeneration, lumbar region without mention of lumbar back pain or lower extremity pain (principal) | CPT/HCPCS: 72110 ==

== ENCOUNTER 2024-07-21 13:41 | Outpatient (AMB) | payer OTHER, SELFPAY ==
[2024-07-21 13:43] VITALS: BP 158/88; PULSE 91; O2SAT 97; BMI 25.8
--- NOTE | 2024-07-21 13:43 | A.OFFPC_ITS ---
Vital Signs 07/21/24 13:43 Height 6 ft Weight 190 lb BMI 25.8 BP 158/88 H Blood Pressure Location Lt brachial Position Sitting Pulse 91 Pulse Source Pulse Oximeter Pulse Oximetry (%) 97 Oxygen Delivery Method Room Air Intake Visit Reasons: ROCAEL DR. Leonard Allergies enalapril Adverse Reaction (Intermediate, Unverified 07/21/24 14:21) cough Medication List - Last Reconciled 07/21/24 by Saray Parra MD atenolol 50 mg PO DAILY atorvastatin 10 mg PO DAILY celecoxib 200 mg PO DAILY gemfibrozil 600 mg PO BID lorazepam 1 mg PO Q6H PRN tramadol 50 mg PO Q6H PRN 30 days Tobacco use date assessed: 04/16/24 Dental Screening Dental Screen Date: 04/16/24 [facility] Medical History (Updated 07/21/24 @ 14:24 by Saray Parra MD) Back pain Hyperlipidemia Hypertension Surgical History (Updated 07/21/24 @ 14:24 by Saray Parra MD) History of lumbar fusion Hx of colonoscopy History of lumbar discectomy History of appendectomy Family History Father Past heart attack Mother No problems noted. Brother Hypertension CAD (coronary artery disease) Social History (Updated 07/21/24 @ 14:25 by Saray Parra MD) Housing: House Are you a primary hiv/aids care nurse to a significant other at home: No Do you presently have visiting nurse or other home services: No Alcohol intake: never Patient Tobacco Use Status: Current someday Tobacco user Tobacco use type: Cigar Years Smoked: cigar QD e-Cigarette/Vaping Use: Never Used Second Hand Smoke Exposure: Yes service: No Current occupational status: employed Cognitive needs: No Hearing needs: No Vision needs: Yes (glasses) Questionnaire PHQ-9 Over the last 2 weeks, how often have you been bothered by any of the following problems? 1. Little interest or pleasure in doing things: not at all 2. Feeling down, depressed, or hopeless: not at all 3. Trouble falling or staying asleep, or sleeping too much: not at all 4. Feeling tired or having little energy: not at all 5. Poor appetite or overeating: not at all 6. Feeling bad about yourself - or that you are a failure or have let yourself or your family down: not at all 7. Trouble concentrating on things, such as reading the newspaper or watching television: not at all 8. Moving or speaking so slowly that other people could have noticed. Or the opposite - being so fidgety or restless that you have been moving around a lot more than usual: not at all 9. Thoughts that you would be better off or of hurting yourself in some way: not at all Total score: 0 Depression Screening Interpretation: Negative Depression Screening Done: Yes Source: Developed by Drs. Fabián Connolly, Danuta Andersen, Nate Thurman and colleagues, with an educational ev from [email or web address] Thrive Questionnaire Date Thrive assessed: 07/14/24 I am a: Patient What is your living situation today?: I have a steady place to live Within the past 12 months, did the food you bought not last and you didn't have the money to get more?: Never true Within the past 12 months, did you worry whether your food would run out before you got money to buy more?: Never true Do you have trouble paying for medicines?: No Do you have trouble getting transportation to medical appointments?: No Do you have trouble paying your heating and electricity bill?: No Do you have trouble taking care of your child, family member or friend?: No Do you have trouble with day-to-day activities such as bathing, preparing meals, shopping, managing finances, etc.?: No Are you currently unemployed and looking for a job?: No Are you interested in more education?: No Please select the resources that you would like help with: None Currently or been in a relationship where the following occur: No concerns reported THRIVE Score: 0 AUDIT C Alcohol Use Questionnaire (AUDIT-C) 1. How often do you have a drink containing alcohol?: Never Total Score: 0 ADA-7 AMB Questionnaire ADA-7 Date ADA - 7 assessed: 04/16/24 Feeling nervous, anxious, or on edge: 1 = Several days Not being able to stop or control worryin = Not at all Worrying too much about different things: 0 = Not at all Trouble relaxin = Several days Being so restless that it is hard to sit still: 1 = Several days Becoming easily annoyed or irritable: 0 = Not at all Feeling afraid as if something awful might happen: 0 = Not at all Total ADA-7 score (0-4 normal; 5-9 mild; 10-14 moderate; 15-21 severe): 3 Source: Developed by Drs. Fabián Connolly, Danuta Andersen, Nate Thurman and colleagues, with an educational ev from [email or web address] Physical exam (Primary Care) Vital Signs: Last Vital Signs Pulse 91 07/21/24 13:43 BP 158/88 H 07/21/24 13:43 Pulse Ox 97 07/21/24 13:43 Oxygen Delivery Method Room Air 07/21/24 13:43 BMI result Body Mass Index 25.8 Tobacco/Smoking Status: Tobacco use Status Tobacco use date assessed 04/16/24 07/21/24 13:51 Patient Tobacco Use Status Current someday Tobacco 07/21/24 13:51 Tobacco use type Cigar 07/21/24 13:51 e-Cigarette/Vaping Use Never Used 07/21/24 13:51 PHQ-9: PHQ-9 Score PHQ-9: Total score 0 07/21/24 13:51 Depression Screening Interpretation: Negative Thrive Assessment: Date of Thrive Assessment Date Thrive assessed 07/14/24 07/21/24 13:51 Currently or been in a relationship where the following occur: No concerns reported Const General: alert; No acute distress Eyes Conjunctivae: conjunctivae normal Resp Auscultation: clear to auscultation bilaterally Cardio Rate: regular rate Rhythm: regular rhythm GI Inspection: Yes normal to inspection Extrem General: Yes normal to inspection and No edema Coding Level of Care Code Est Pt Level 4 (86898) Complex EM visit Add On G2211 Diagnoses Hypertension I10 Hyperlipidemia E78.5 Scoliosis of lumbar region due to degenerative disease of spine in adult M41.56 S/P lumbar fusion Z98.1 Generalized anxiety disorder F41.1 Assessment & Plan Assessment & Plan (1) Hypertension: Code(s): I10 - Essential (primary) hypertension Category: Medical Plan: Continue with blood pressure medication. Decrease salt intake and exercise on atenolol 50 mg once a day (2) Hyperlipidemia: Code(s): E78.5 - Hyperlipidemia, unspecified Category: Medical Plan: Avoid fried foods, chicken skin, eggs, butter margarine, pastries and meat. Be it pork or beef they have a lot of cholesterol on gemfibrozil 600 mg twice a day atorvastatin 10 mg once a day (3) Scoliosis of lumbar region due to degenerative disease of spine in adult: Comment: Status post 0 L IF March 2024 Code(s): M41.56 - Other secondary scoliosis, lumbar region Category: Medical Plan: Status post surgery May 2024 (4) S/P lumbar fusion: Comment: 03/2024 Code(s): Z98.1 - Arthrodesis status Category: Surgical Plan: Status post March 2024 (5) Generalized anxiety disorder: Code(s): F41.1 - Generalized anxiety disorder Category: Medical Plan: Continue with present medication Plan History of Present Illness The patient is a 64-year-old male presenting with hypertension and generalized anxiety disorder. The hypertension has been a chronic issue managed with atenolol, though recent home readings are elevated. Generalized anxiety disorder has worsened recently, with symptoms including sweating and restlessness, pa rticularly in the evenings, relieved by lorazepam. Concerns regarding the potential for addiction to lorazepam have been discussed. Back surgery in March addressed lumbar degenerative disc disease, and the patient has cautiously resumed golfing. Past medical history includes hypercholesterolemia managed with atorvastatin and gemfibrozil. Recent blood tests indicated elevated triglycerides and fasting glucose. Past surgical history and clinical evaluations have been reviewed, noting dermatologic and gastrointestinal assessments. Family history of cardiac events and a personal history of limited physical exercise lately due to surgery and subsequent recovery period were discussed. Health Maintenance - Reviewed patient's past colonoscopy in October 2022, revealing hemorrhoids. - Recent dermatological check in May showed benign skin lesions, including actinic and seborrheic keratosis. - Suggestion to continue monitoring skin changes and attending regular dermatology appointments. - Discussion of balanced nutrition and regular exercise as part of general health maintenance. - Reviewed patient?s vaccination status: recommended Td vaccination. Social History - Retired, spending significant time golfing and working in the yard. - Non-smoker; reports occasional cigar use. - Denies alcohol consumption. - Enjoys physical activity but limited by recent back surgery and recovery. - Lives in [place] in a stable housing situation. Review of Systems - Constitutional: Reports no unintentional weight change, no fever. - Cardiovascular: Denies chest pain or palpitations. - Respiratory: Denies shortness of breath. - Gastrointestinal: Denies change in bowel habits. - Dermatologic: Reports various skin lesions previously evaluated. - Neurological: Denies headaches or vision changes. - Psychological: Reports anxiety, worsened by cessation of activity; denies depression. Physical Exam General: Cooperative, healthy appearing, comfortable, no acute distress and well developed Orientation: Patient oriented x3 Limitations: No limitations Head: Normal to inspection Ears: Hearing grossly normal bilaterally Nose: Normal external nose present Face and sinus: Normal facial exam Eyes: Appearance normal, both eyes and all related structures Neck: Normal visual inspection and Yes full ROM Respiratory: Normal respiratory effort and able to speak in complete sentences. Clear to auscultation bilaterally Cardiovascular: Regular rate and rhythm. Normal S1 and S2 GI: Normal to inspection. Soft to palpation and nontender Skin: No rashes or lesions noted Neuro: Patient oriented x3 Extremities: Normal to inspection Results - Labs: February 2024 blood work showed glucose 104 mg/dL, triglycerides 201 mg/dL, LDL 99 mg/dL. - Imaging: X-ray showing stable surgical construct at L2-3 and L3-4 with mild degenerative changes. Plan We will increase atenolol for managing hypertension while suggesting dietary sodium reduction. Anxiety will be managed with a new Wellbutrin prescription to phase out lorazepam usage, considering potential dependency. Continue atorvastatin and gemfibrozil for lipid control, emphasizing a healthier diet to improve triglyceride levels. Prediabetes will be managed through lifestyle modifications. Dermatologic follow-ups are advised, and the patient received a Td vaccination for prevention today. Patient was informed and verbally consented to the use of an ambient scribe for clinic note documentation during this visit. Discussion Notes During this visit, I discussed with the patient the elevated blood pressure and proposed increasing atenolol to better manage it, with the understanding that reducing sodium intake could be beneficial. Anxiety management was addressed with a plan to transition from lorazepam to Wellbutrin, explaining the risks of continued benzodiazepine use. We reviewed cholesterol management with continuation of current medication and emphasis on dietary modification to reduce triglycerides. I ensured the patient understood the progression of prediabetes and the need for physical activity and dietary change. The patient consented to receive a Td vaccine. Follow-up for blood pressure monitoring, anxiety management progress, and dermatological assessments was discussed. Patient Instructions - Increase atenolol to 100 mg once daily for blood pressure. - Taper off lorazepam and start Wellbutrin once daily for anxiety. - Continue atorvastatin and gemfibrozil for cholesterol. - Monitor blood pressure and pulse at home regularly. - Avoid salt and processed foods. - Increase physical activity gradually as tolerated. - Continue routine dermatology checks. - Seek care for new symptoms or worsening conditions. - Schedule a follow-up visit for review and monitoring. Medications: New bupropion HCl XL (Wellbutrin XL) 150 mg PO QAM 30 tabs 2RF F41.1 - Generalized anxiety disorder Changed From atenolol 50 mg PO DAILY 90 tabs 8RF To atenolol 100 mg PO DAILY 90 tabs 1RF
--- OUTSIDE RECORDS SUMMARY | 2024-07-21 13:47 | XMS_ITS | Patient Health Record ---
Author Organization [facility] Address [address] [place] [address] Care Team Providers Care Feather Mixer Name Role Phone Edin Leonard MD Primary Care Provider José Luis gilman MijaresFabián Unavailable [phone] Allergies No Known Allergies Reason For Referral [...] Problem Status W/U Status Risk Notes Problem [id number] Colon cancer screening (Z12.11) Active confirmed Problem Diverticular disease of colon (175871216) Diverticulosis of large intestine without perforation or abscess without bleeding (K57.30) Active confirmed Problem [id number] Preprocedural examination (Z01.818) Active confirmed Plan Of Treatment Future Test Test Name Order Date COLONOSCOPY 08/12/2012 COLONOSCOPY 05/29/2022 Insurance Providers Payer Name Payer Address Payer Phone Subscriber Number Group Number Insured Name Patient Relationship to Insured Coverage Start Date Coverage End Date [facility] [address] [facility] [phone] [id number] SAUMYA COHEN Self - patient is the insured Medical (General) History Medical History History ICD Code HTN Elevated cholesterol Back pain Denies RI,DM,CVA,Lung disease,renal dise ase Negative screening colonoscopy in 10/2012 Surgical History Surgery Date(Month/Year) Lower back for disc disease Appy
== END 2024-07-21 14:49 | disposition home or self-care (01) ==
LOC: HO.HMCH 13:42
PROVIDERS: PCP Internal Medicine; Visit Provider Internal Medicine
DX: I10 Essential (primary) hypertension (principal); E78.5 Hyperlipidemia, unspecified; M41.56 Other secondary scoliosis, lumbar region; Z98.1 Arthrodesis status; F41.1 Generalized anxiety disorder; Z23 Encounter for immunization

== ENCOUNTER → 2024-07-21 13:41 | Outpatient (BNVA) | payer OTHER, SELFPAY | PROVIDERS: PCP Internal Medicine; Visit Provider Internal Medicine | DX: I10 Essential (primary) hypertension (principal); E78.5 Hyperlipidemia, unspecified; M41.56 Other secondary scoliosis, lumbar region; F41.1 Generalized anxiety disorder; Z98.1 Arthrodesis status; Z23 Encounter for immunization | CPT/HCPCS: 90471; 90714; 96127 ==

== ENCOUNTER 2024-07-31 14:44 | Emergency (ER) | payer OTHER, SELFPAY ==
[2024-07-31 14:58] VITALS: BP 197/104; PULSE 76; RESP 18; TEMP 36.9; O2SAT 98; BMI 24.4
--- NOTE | 2024-07-31 14:59 | ED.GENADULT ---
HPI - General Adult General Chief complaint: General Medical Stated complaint: high blood pressure 184/102 Time Seen by Provider: 07/31/24 16:05 Source: patient and family Mode of arrival: ambulatory Limitations: no limitations History of Present Illness ED Provider: DR. Sawant HPI narrative: A 64-year-old male history of essential hypertension came in for evaluation of mid chest tightness and elevated blood pressure. History of high blood pressure managed by atenolol 50 mg daily that was increased 2 weeks ago of 100 mg daily, then PCP change atenolol to carvedilol 6.25 mg daily for the past 4 days. Patient found that his blood pressure is elevated, feels some chest tightness since this morning with no radiation, no other associated symptoms, no relieving factor, no aggravating factor. Patient has no headache, no blurry vision, no abdominal pain. Patient with known history of anxiety, was recently started Wellbutrin for anxiety. Related Data Previous Rx's ?Medication ?Instructions ?Recorded atorvastatin 10 mg tablet 10 mg PO DAILY #90 tabs 11/13/23 tramadol 50 mg tablet 50 mg PO Q6H PRN pain 30 days #360 04/20/24 tabs celecoxib 200 mg capsule 200 mg PO DAILY #90 caps 05/11/24 lorazepam 1 mg tablet 1 mg PO Q6H PRN anxiety #60 tabs 06/04/24 gemfibrozil 600 mg tablet 600 mg PO BID #180 tabs 07/15/24 bupropion HCl 150 mg 24 hr tablet, 150 mg PO QAM #30 tabs 07/21/24 extended release (Wellbutrin XL) carvedilol 6.25 mg tablet 6.25 mg PO BID #60 tabs 07/29/24 amlodipine 5 mg tablet 5 mg PO DAILY #30 tabs 07/31/24 Allergies Allergy/AdvReac Type Severity Reaction Status Date / Time enalapril AdvReac Intermediate cough Verified 07/31/24 15:02 Review of Systems Review of Systems: All other systems are reviewed and are negative Constitutional: Reports as per HPI and Reports no additional constitutional complaints Eyes: Reports as per HPI and Reports no additional eye complaints Reports system reviewed and no additional complaints, except as documented Cardiovascular: Reports as per HPI and Reports no additional cardiovascular complaints Respiratory: Reports as per HPI and Reports no additional respiratory complaints Gastrointestinal: Reports as per HPI and Reports no additional gastrointestinal complaints Genitourinary: Reports no additional female genitourinary complaints Musculoskeletal: Reports no additional musculoskeletal complaints Skin/Breast: Reports system reviewed and no additional complaints, except as docu Psychiatric: Reports no additional psychiatric complaints Endocrine: Reports no additional endocrine complaints Hematologic/Lymphatic: Reports no additional hematologic/lymphatic complaints Allergic/Immunologic: Reports no additional allergic/immunologic complaints Reports system reviewed and no additional complaints, except as documented and Reports Abnormal speech present REPLACED BY [facility] Past Medical History Medical History Back pain Hyperlipidemia Hypertension Surgical History History of lumbar fusion Hx of colonoscopy History of lumbar discectomy History of appendectomy Family History Family History Father Past heart attack Mother No problems noted. Brother Hypertension CAD (coronary artery disease) Social History Social History Housing: House Are you a primary pharmacy care coordinator to a significant other at home: No Do you presently have visiting nurse or other home services: No Alcohol intake: never Patient Tobacco Use Status: Current someday Tobacco user Tobacco use type: Cigar Years Smoked: cigar QD Smoked in Last 30 Days: Yes e-Cigarette/Vaping Use: Never Used Second Hand Smoke Exposure: Yes Use of substances other than those prescribed or required for medical reasons: No Advance Directives: No Advance Directives Information Provided: No Do you have a plan to hurt others: No Plan service: No Current occupational status: employed Cognitive needs: No Hearing needs: No Vision needs: Yes (glasses) Physical Exam ED Vital Signs: Vital Signs - 24 hr 07/31/24 14:58 07/31/24 15:55 07/31/24 17:13 Temperature 98.4 F Pulse Rate 76 65 53 Respiratory Rate 18 16 16 Blood Pressure 197/104 H 180/93 H 166/88 H Pulse Oximetry 98 97 98 Oxygen Delivery Method Room Air Room Air Room Air 07/31/24 18:25 Temperature Pulse Rate 58 Respiratory Rate 16 Blood Pressure 154/86 H Pulse Oximetry 99 Oxygen Delivery Method Room Air BMI result Body Mass Index 24.4 Vital signs have been reviewed and appear to be correct. Blood pressure elevated. Heart rate normal. Respiratory rate normal. Temperature normal. Oxygen saturation normal. Appearance: Alert. Oriented X3. No acute distress. Head: Normal external exam. Normocephalic. Atraumatic. No García signs noted. No raccoon eyes noted Eyes: PERRLA. EOMI. Conjunctiva and sclera normal. Eyelids normal. ENT: TM's Normal. Pharynx normal. Uvula midline. Moist mucous membranes. No trismus noted. No drooling noted. No muffled voice noted. Neck: Normal inspection. Neck supple. FROM. No adenopathy. Thyroid Normal. No meningeal signs. No neck mass noted. CVS: Normal heart rate and rhythm. Heart sound normal. No murmurs noted. Pulses normal throughout. Respiratory: No respiratory distress. Painless inspiration. Breath sounds normal. No wheezes/rales/rhonchi noted. Chest nontender. No accessory muscle usage noted or decreased air movement noted. Abdomen: Soft and nontender. Bowel sounds normal in all 4 quadrants. No distention noted. No organomegaly noted. No visible injury noted. Back: No CVA tenderness. Full range of motion noted. Skin: Skin warm and dry. Normal skin color. Normal skin turgor. No rashes/lesions/lacerations noted. Extremities: No lower extremity edema. Extremities exhibit normal range of motion. Extremities nontender. Neuro: Oriented X 3. Cranial nerve exam: II-XII are grossly intact No motor deficit. No sensory deficit. Reflexes normal. Course Course Course Narrative: RME, this is a rapid medical exam performed by Jordi Zepeda please refer to primary provider for complete H&P- 64 year old male presents for evaluation of high blood pressure. His primary doctor increased his Atenolol from 50-100mg and then changed his meds to Carvedolol 6.25mg daily. The patient took both Cavedolol and Atenolol today. He complains of mild chest tightness. Plan for cardiac workup Reevaluation(s) Reevaluation #1: 64-year-old male came in for evaluation of uncontrolled hypertension and chest pain. EKG showed no ischemic change with no change from previous EKGs. Patient was given 5 mg of amlodipine blood pressure is under better control, no headache, no chest pain, no blurry vision. As discussed with the patient will continue patient on amlodipine 5 mg daily and atenolol 50 mg daily, patient was instructed to record blood pressure in 3 different times a day and shows a record to his PCP to determine if he need blood pressure adjustment. Time: 19:40 Medications Administered Discontinued Medications Generic Name Dose Route Start Last Admin Trade Name Freq PRN Reason Stop Dose Admin Amlodipine Besylate 5 mg 07/31/24 16:22 07/31/24 16:40 Amlodipine Besylate 5 Mg Tablet PO 07/31/24 16:23 5 mg ONCE ONE Administration Protocol Medical Decision Making Differential Diagnosis Differential Diagnoses: The differential diagnosis associated with the presentation includes ( hypertensive urgency, hypertensive emergency, ACS, electrolyte derangement, severe anemia.) Admission/Observation Consideration of admission/observation: Escalation of care including admission/observation considered Lab Data MDM Lab Attestation statement: I reviewed the patient's lab results. 07/31/24 15:21 07/31/24 15:21 Labs: Lab Results 07/31/24 07/31/24 Range/Units 15:21 18:31 WBC 8.0 (4.8-10.8) X10*3/uL RBC 4.72 (4.60-5.80) X10*6/uL Hgb 14.2 (14.0-18.0) g/dl Hct 41.0 L (42.0-52.0) % MCV 86.9 (80.0-98.0) fL MCH 30.1 (27.0-33.0) pg MCHC 34.6 (31.0-36.0) g/dl RDW 13.2 (11.0-16.0) % Plt Count 251 (160-400) X10*3/uL MPV 9.4 (9.4-12.4) fL Immature Gran % (Auto) 0.4 (0.0-0.4) % Neut % (Auto) 59.2 (45-73) % Lymph % (Auto) 28.3 (20-40) % [place] % (Auto) 8.2 (2-11) % Eos % (Auto) 3.4 (0-4) % Baso % (Auto) 0.5 (0-2) % Lymph # (Auto) 2.3 (1.2-4.9) X10*3/uL [place] # (Auto) 0.7 (0.1-1.2) X10*3/uL Eos # (Auto) 0.3 (0.0-0.4) X10*3/uL Baso # (Auto) 0.0 (0.0-0.2) X10*3/uL Abs Immat Gran (auto) 0.03 (0.00-0.03) X10*3/uL Absolute Neuts (auto) 4.7 (2.0-8.3) x10*3/uL Absolute Nucleated RBC 0.000 (0.0-0.012) X10*3/uL Nucleated RBC % (auto) 0.0 (0.0-0.2) /100WBC Sodium 140 (135-145) mmol/L Potassium 4.5 (3.3-5.1) mmol/L Chloride 107 (96-108) mmol/L Carbon Dioxide 23 (22-29) mmol/L Anion Gap 15 (12-20) BUN 15 (9-16) mg/dL Creatinine 1.14 (0.5-1.4) mg/dL Estim Creat Clear Calc 74.9 Estimated GFR > 60 Random Glucose 95 (60-115) mg/dL Calcium 9.1 (8.4-10.2) mg/dL Total Bilirubin 0.7 (0.0-1.0) mg/dL AST 20 (5-37) U/L ALT 16 (0-40) U/L Alkaline Phosphatase 107 (39-117) U/L Troponin I High Sens < 2.7 < 2.7 (<3.5-35.0) ng/L Total Protein 6.9 (6.5-8.0) g/dL Albumin 4.3 (3.5-5.0) g/dL Discharge Plan Discharge Clinical Impression: Essential hypertension, Chest pain Patient Disposition: Home, Self-Care Instructions: Hypertension (ED) Additional Instructions: discontinue carvedilol, only take 50 mg of atenolol once daily, start amlodipine 5 mg tablet daily. Recorded blood pressure reading 3 different times a day and shows a records your primary doctor to determine if you need change on your blood pressure medication. Prescriptions: New amlodipine 5 mg tablet 5 mg PO DAILY Qty: 30 0RF No Action atorvastatin 10 mg tablet 10 mg PO DAILY Qty: 90 3RF celecoxib 200 mg capsule 200 mg PO DAILY Qty: 90 3RF lorazepam 1 mg tablet 1 mg PO Q6H PRN (Reason: anxiety) Qty: 60 1RF gemfibrozil 600 mg tablet 600 mg PO BID Qty: 180 3RF carvedilol 6.25 mg tablet 6.25 mg PO BID Qty: 60 2RF Rx Instructions: must administer with a meal/food tramadol 50 mg tablet 50 mg PO Q6H PRN (Reason: pain) 30 Days Qty: 360 0RF bupropion HCl [Wellbutrin XL] 150 mg tablet extended release 24 hr 150 mg PO QAM Qty: 30 2RF Referrals: Po,Saray Barnes MD [Primary Care Provider] - Print Language: Malay
--- NOTE | 2024-07-31 15:00 | ECG_ITS ---
Test Reason : HIGH BP Blood Pressure : */* mmHG Vent. Rate : 65 BPM Atrial Rate : 65 BPM P-R Int : 156 ms QRS Dur : 86 ms QT Int : 400 ms P-R-T Axes : 59 36 46 degrees QTcB Int : 416 ms Normal sinus rhythm Normal ECG When compared with ECG of 29-Mar-2024 14:08, No significant change was found Referred By: Gilbert Zepeda Electronically Signed By: Bubba Cervantes
[2024-07-31 15:26] LABS: MANUAL DIFF FLAG NO
[2024-07-31 15:27] LABS: Basophils Percent Auto 0.5 % (0-2); Eosinophils Absolute Auto 0.3 X10*3/uL (0.0-0.4); Eosinophils Percent Auto 3.4 % (0-4); Hemoglobin 14.2 g/dl (14.0-18.0); Imm Gran Abs Auto 0.03 X10*3/uL (0.00-0.03); Imm Gran Pct Auto 0.4 % (0.0-0.4); Lymphocytes Absolute Auto 2.3 X10*3/uL (1.2-4.9); Lymphocytes Percent Auto 28.3 % (20-40); Mean Corpuscular HGB Conc 34.6 g/dl (31.0-36.0); Mean Corpuscular Hemoglobin 30.1 pg (27.0-33.0); Mean Corpuscular Volume 86.9 fL (80.0-98.0); Mean Platelet Volume 9.4 fL (9.4-12.4); Monocytes Absolute Auto 0.7 X10*3/uL (0.1-1.2); Monocytes Percent Auto 8.2 % (2-11); Neutrophils Absolute Auto 4.7 x10*3/uL (2.0-8.3); Neutrophils Percent Auto 59.2 % (45-73); Platelet Count 251 X10*3/uL (160-400); Red Blood Count 4.72 X10*6/uL (4.60-5.80); Red Cell Distribution Width 13.2 % (11.0-16.0)
[2024-07-31 15:48] LABS: Alanine Aminotransferase 16 U/L (0-40); Albumin Level 4.3 g/dL (3.5-5.0); Alkaline Phosphatase 107 U/L (39-117); Anion Gap 15 (12-20); Aspartate Amino Transferase 20 U/L (5-37); Bilirubin Total 0.7 mg/dL (0.0-1.0); Blood Urea Nitrogen 15 mg/dL (9-16); Calcium 9.1 mg/dL (8.4-10.2); Carbon Dioxide 23 mmol/L (22-29); Chloride 107 mmol/L (96-108); Creatinine Clr Calc Pharmacy 74.9; Estimated Glomerular Filt Rate > 60; Glucose Random 95 mg/dL (60-115); Potassium 4.5 mmol/L (3.3-5.1); Sodium 140 mmol/L (135-145); Total Protein 6.9 g/dL (6.5-8.0)
[2024-07-31 15:49] LABS: Troponin-I High Sensitivity < 2.7 ng/L (<3.5-35.0)
[2024-07-31 15:55] VITALS: BP 180/93; PULSE 65; RESP 16; O2SAT 97
--- NOTE | 2024-07-31 15:59 | PC.NURSE ---
pt a&ox4, hypertensive, other vss, reports some mild chest tightness but reports similar symptoms associated w anxiety. denies any h/a, dizziness, sob. pt has been changing HTN meds from atenolol to carvedilol - took carvedilol this morning and took an additional 50mg of atenolol this afternoon after pressure remained high. also reports recent changes in anxiety medication from ativan to wellbutrin. pt pending ED provider supervisor opening and picking.
[2024-07-31] MEDS: amLODIPine Besylate 5 MG TABLET PO (16:40)
[2024-07-31 17:13] VITALS: BP 166/88; PULSE 53; RESP 16; O2SAT 98
[2024-07-31 18:25] VITALS: BP 154/86; PULSE 58; RESP 16; O2SAT 99
[2024-07-31 19:04] LABS: Troponin-I High Sensitivity < 2.7 ng/L (<3.5-35.0)
[2024-07-31 19:56] VITALS: BP 150/76; PULSE 60; RESP 17; TEMP 37; O2SAT 99
== END 2024-07-31 19:56 | disposition home or self-care (01) ==
PROVIDERS: Physician Assistant; Emergency Provider Emergency Medicine; PCP Internal Medicine
DX: R07.89 Other chest pain (principal); I10 Essential (primary) hypertension; Z79.899 Other long term (current) drug therapy; F17.210 Nicotine dependence, cigarettes, uncomplicated
CPT/HCPCS: 36415; 80053; 84484; 85025; 93005; 99284

== ENCOUNTER → 2024-07-31 15:00 | Outpatient (BNV) | payer OTHER, SELFPAY | PROVIDERS: Emergency Provider Emergency Medicine; PCP Internal Medicine; Visit Provider Internal Medicine Cardiovascular Disease | DX: R07.89 Other chest pain (principal) | CPT/HCPCS: 93010 ==

== ENCOUNTER 2024-08-09 14:12 | Outpatient (AMB) | payer OTHER, SELFPAY ==
[2024-08-09 14:17] VITALS: BP 162/80; PULSE 75; O2SAT 98; BMI 25.1
--- NOTE | 2024-08-09 14:17 | A.OFFPC_ITS ---
Vital Signs 08/09/24 14:17 Height 6 ft 1 in Weight 190 lb BMI 25.1 BP 162/80 H Blood Pressure Location Lt brachial Position Sitting Pulse 75 Pulse Source Pulse Oximeter Pulse Oximetry (%) 98 Oxygen Delivery Method Room Air Int[place] [facility] [place]/102 Allergies enalapril Adverse Reaction (Intermediate, Verified 08/09/24 14:17) cough Medication List - Last Reconciled 08/09/24 by Saray Parra MD amlodipine 5 mg PO DAILY atenolol 50 mg PO DAILY atorvastatin 10 mg PO DAILY celecoxib 200 mg PO DAILY gemfibrozil 600 mg PO BID lorazepam 1 mg PO Q6H PRN tramadol 50 mg PO Q6H PRN 30 days Tobacco use date assessed: 04/16/24 Dental Screening Dental Screen Date: 04/16/24 [facility] Medical History Back pain Hyperlipidemia Hypertension Surgical History History of lumbar fusion Hx of colonoscopy History of lumbar discectomy History of appendectomy Family History Father Past heart attack Mother No problems noted. Brother Hypertension CAD (coronary artery disease) Social History Housing: House Are you a primary health care recruiter to a significant other at home: No Do you presently have visiting nurse or other home services: No Alcohol intake: never Patient Tobacco Use Status: Current someday Tobacco user Tobacco use type: Cigar Years Smoked: cigar QD e-Cigarette/Vaping Use: Never Used Second Hand Smoke Exposure: Yes service: No Current occupational status: employed Cognitive needs: No Hearing needs: No Vision needs: Yes (glasses) Questionnaire PHQ-9 Over the last 2 weeks, how often have you been bothered by any of the following problems? 1. Little interest or pleasure in doing things: not at all 2. Feeling down, depressed, or hopeless: not at all 3. Trouble falling or staying asleep, or sleeping too much: not at all 4. Feeling tired or having little energy: not at all 5. Poor appetite or overeating: not at all 6. Feeling bad about yourself - or that you are a failure or have let yourself or your family down: not at all 7. Trouble concentrating on things, such as reading the newspaper or watching television: not at all 8. Moving or speaking so slowly that other people could have noticed. Or the opposite - being so fidgety or restless that you have been moving around a lot more than usual: not at all 9. Thoughts that you would be better off or of hurting yourself in some way: not at all Total score: 0 Depression Screening Interpretation: Negative Depression Screening Done: Yes Source: Developed by Drs. Fabián Connolly, Danuta Andersen, Nate Thurman and colleagues, with an educational ev from [employer]. Thrive Questionnaire Date Thrive assessed: 07/14/24 I am a: Patient What is your living situation today?: I have a steady place to live Within the past 12 months, did the food you bought not last and you didn't have the money to get more?: Never true Within the past 12 months, did you worry whether your food would run out before you got money to buy more?: Never true Do you have trouble paying for medicines?: No Do you have trouble getting transportation to medical appointments?: No Do you have trouble paying your heating and electricity bill?: No Do you have trouble taking care of your child, family member or friend?: No Do you have trouble with day-to-day activities such as bathing, preparing meals, shopping, managing finances, etc.?: No Are you currently unemployed and looking for a job?: No Are you interested in more education?: No Please select the resources that you would like help with: None Currently or been in a relationship where the following occur: No concerns reported THRIVE Score: 0 AUDIT C Alcohol Use Questionnaire (AUDIT-C) 1. How often do you have a drink containing alcohol?: Never Total Score: 0 ADA-7 AMB Questionnaire ADA-7 Date ADA - 7 assessed: 04/16/24 Source: Developed by Drs. Fabián Connolly, Danuta Andersen, Nate Thurman and colleagues, with an educational ev from [employer]. Physical exam (Primary Care) Vital Signs: Last Vital Signs Pulse 75 08/09/24 14:17 BP 162/80 H 06/02/25 14:17 Pulse Ox 98 08/09/24 14:17 Oxygen Delivery Method Room Air 08/09/24 14:17 BMI result Body Mass Index 25.1 Tobacco/Smoking Status: Tobacco use Status Tobacco use date assessed 04/16/24 08/09/24 14:18 Patient Tobacco Use Status Current someday Tobacco 08/09/24 14:18 Tobacco use type Cigar 08/09/24 14:18 e-Cigarette/Vaping Use Never Used 08/09/24 14:18 PHQ-9: PHQ-9 Score PHQ-9: Total score 0 08/09/24 14:43 Depression Screening Interpretation: Negative Thrive Assessment: Date of Thrive Assessment Date Thrive assessed 07/14/24 08/09/24 14:18 Currently or been in a relationship where the following occur: No concerns reported Const General: alert; No acute distress Eyes Conjunctivae: conjunctivae normal Resp Auscultation: clear to auscultation bilaterally Cardio Rate: regular rate Rhythm: regular rhythm GI Inspection: Yes normal to inspection Extrem General: Yes normal to inspection and No edema Coding Level of Care Code Est Pt Level 4 (07841) Diagnoses Hypertension I10 Hyperlipidemia E78.5 Lumbar radiculopathy, acute M54.16 Generalized anxiety disorder F41.1 Assessment & Plan Assessment & Plan (1) Hypertension: Code(s): I10 - Essential (primary) hypertension Category: Medical Plan: Continue with blood pressure medication. Decrease salt intake and exercise presently has been placed on atenolol 50 mg once a day and an addition of amlodipine 5 mg once a day (2) Hyperlipidemia: Code(s): E78.5 - Hyperlipidemia, unspecified Category: Medical Plan: Avoid fried foods, chicken skin, eggs, butter margarine, pastries and meat. Be it pork or beef they have a lot of cholesterol on atorvastatin 10 mg once a day and gemfibrozil 600 mg twice a day (3) Lumbar radiculopathy, acute: Code(s): M54.16 - Radiculopathy, lumbar region Category: Medical Plan: On tramadol for pain. (4) Generalized anxiety disorder: Code(s): F41.1 - Generalized anxiety disorder Category: Medical Plan History of Present Illness The patient is a 64-year-old male presenting with concerns regarding his hypertension and anxiety management. Initially prescribed atenolol, his antihypertensive regimen was recently altered to carvedilol, resulting in poorly controlled blood pressures and chest discomfort. He returned to atenolol along with starting amlodipine after an ER visit for these issues. He also suffers from hypercholesterolemia and generalized anxiety disorder, managed by atorvastatin and gemfibrozil for cholesterol, and previously with bupropion, w hich he discontinued due to increased anxiety. Current blood pressure readings remain high, particularly in the evening, despite the adjusted medication regimen. Regular blood tests reveal no anemia, normal electrolytes, and healthy renal and liver functions. His hypercholesterolemia is actively managed, and his awareness of anxiety has increased post his ceasing of bupropion. Health Maintenance - Colonoscopy up to date - Blood work shows no anemia, normal electrolytes, normal renal function, and good liver function Social History - Employment status, family planning, exercise habits, substance use not discussed Review of Systems - Cardiovascular: Reports previously elevated blood pressure and chest pain - Psychiatric: Reports anxiety; discontinued bupropion - Musculoskeletal: Previously reported issues related to degenerative disc disease Physical Exam Results - Labs: No anemia, normal electrolytes, normal renal function, normal blood sugar, and normal liver function Plan The patient's hypertension will be managed by continued use of atenolol 50 mg daily and amlodipine 5 mg daily. His hypercholesterolemia treatment regimen, including atorvastatin and gemfibrozil, remains unchanged. We are closely monitoring for anxiety symptoms post-bupropion discontinuation to reassess alternative treatment if necessary. I have advised on monitoring any adverse effects possibly related to aminodipine, especially for peripheral edema. A refill for amlodipine has been provided, and he will continue with his current supply from [facility]. The patient is scheduled for a follow-up appointment in January to review the efficacy of the current management plans. Patient was informed and verbally consented to the use of an ambient scribe for clinic note documentation during this visit. Discussion Notes Following an episode of poorly controlled hypertension and chest pain upon switching from atenolol to carvedilol, I discussed with the patient the reinitiation of atenolol and addition of amlodipine. We reviewed the benefits and potential risks associated with his medications, particularly monitoring blood pressure levels and being vigilant about peripheral edema. The patient was instructed on the importance of adherence to prescribed medications and will continue using atorvastatin and gemfibrozil for his cholesterol management. Counseling topics included the patient's awareness of anxiety symptoms in the context of bupropion discontinuation. He consented to the current management plan, understanding the rationale for each medication and associated precautions . We agreed on a follow-up appointment in January, and I emphasized contacting me sooner if emergent symptoms or medication issues arise. Patient Instructions - Take atenolol 50 mg once a day as prescribed. - Take amlodipine 5 mg once a day as prescribed. - Continue atorvastatin 10 mg once a day and gemfibrozil 600 mg twice a day as prescribed for cholesterol control. - Monitor blood pressure regularly and report readings over 200 mmHg. - Be alert to any swelling in the legs, which could be due to amlodipine. - Attend follow-up appointment in January. - Contact me if any new or concerning symptoms arise. Medications: Refilled amlodipine 5 mg PO DAILY 90 tabs 1RF I10 - Essential (primary) hypertension
--- OUTSIDE RECORDS SUMMARY | 2024-08-09 15:29 | XMS_ITS | Patient Health Record ---
Author Organization [facility] Address [address] [place] [id number] Care Team Providers Care [employer] Worker Name Role Phone Edin Leonard MD Primary Care Provider Khadar Wang Unavailable [phone] Reason For Referral No Information Medications Medication SIG (Take, Route, Fr equency, Duration) Notes Start Date End Date Status Atenolol 100 MG 1 tablet Orally Once a day for 30 day(s) Active CeleBREX 200 MG 1 capsule Orally Onc e a day for 30 day(s) Active Viagra 50 MG 1 tablet as needed O rally Once a day for 30 day(s) Active Lopid 600 MG 1 tablet Orally Twic e a day for 30 day(s) Active traMADol HCl 50 MG 1 tablet as needed O rally every 6 hrs Active Problems Problem Type SNOMED Code ICD Code Onset Dates Problem Status W/U Status Risk Notes Problem Hallux valgus ([id number]) Hallux Valgus (735.0) Active confirmed Plan Of Treatment No Information Insurance Providers Payer Name Payer Address Payer Phone Subscriber Number Group Number Insured Name Patient Relationship to Insured Coverage Start Date Coverage End Date [facility] [address] [facility] [place] [id number] [phone] [id number] Miguelangel Sullivan Self - patient is the insured Medical (General) History Medical History History ICD Code hypertension erectile dysfunction hyperlipidemia degenerative disease lumbosacral spine Surgical History Surgery Date(Month/Year) appendectomy lumbar
== END 2024-08-09 15:09 | disposition home or self-care (01) ==
LOC: HO.HMCH 14:13
PROVIDERS: PCP Internal Medicine; Visit Provider Internal Medicine
DX: I10 Essential (primary) hypertension (principal); E78.5 Hyperlipidemia, unspecified; M54.16 Radiculopathy, lumbar region; F41.1 Generalized anxiety disorder

== ENCOUNTER → 2024-08-09 14:12 | Outpatient (BNVA) | payer OTHER, SELFPAY | PROVIDERS: PCP Internal Medicine; Visit Provider Internal Medicine ==

== ENCOUNTER 2025-01-17 12:55 | Outpatient (REF) | payer OTHER, SELFPAY | END 2025-01-17 12:56 | disposition home or self-care (01) | LOC: HO.CT 12:55 | PROVIDERS: PCP Internal Medicine; Visit Provider Physician Assistant | DX: Z98.1 Arthrodesis status (principal) | CPT/HCPCS: 72131 ==

== ENCOUNTER → 2025-01-17 12:56 | Outpatient (BNV) | payer OTHER, SELFPAY | PROVIDERS: PCP Internal Medicine; Visit Provider Specialist | DX: Z98.1 Arthrodesis status (principal) | CPT/HCPCS: 72131 ==

== ENCOUNTER 2025-01-21 12:24 | Outpatient (AMB) | payer OTHER, SELFPAY ==
[2025-01-21 12:31] VITALS: BP 136/68; PULSE 71; O2SAT 97; BMI 25.7
--- NOTE | 2025-01-21 12:31 | MHC.PC.OV ---
Vital Signs 01/21/25 12:31 Height 6 ft 1 in Weight 195 lb BMI 25.7 BP 136/68 Blood Pressure Location Lt brachial Position Sitting Pulse 71 Pulse Source Pulse Oximeter Pulse Oximetry (%) 97 Oxygen Delivery Method Room Air Intake Visit Reasons: pe Allergies enalapril Adverse Reaction (Intermediate, Verified 01/21/25 12:32) cough Medication List - Last Reconciled 01/21/25 by Saray Parra MD amlodipine 5 mg PO DAILY atenolol 50 mg PO DAILY atorvastatin 10 mg PO DAILY celecoxib 200 mg PO DAILY gemfibrozil 600 mg PO BID lorazepam 1 mg PO Q6H PRN tramadol 50 mg PO TID PRN 30 days Tobacco use date assessed: 04/16/24 Dental Screening Dental Screen Date: 04/16/24 [facility] Medical History Back pain Hyperlipidemia Hypertension Surgical History History of lumbar fusion Hx of colonoscopy History of lumbar discectomy History of appendectomy Family History (Updated 01/21/25 @ 12:50 by Saray Parra MD) Father Past heart attack Mother No problems noted. Brother Hypertension CAD (coronary artery disease) Sister CVA (cerebral vascular accident) Social History Housing: House Are you a primary patient care director to a significant other at home: No Do you presently have visiting nurse or other home services: No Alcohol intake: never Patient Tobacco Use Status: Current someday Tobacco user Tobacco use type: Cigar Years Smoked: cigar QD e-Cigarette/Vaping Use: Never Used Second Hand Smoke Exposure: Yes service: No Current occupational status: employed Cognitive needs: No Hearing needs: No Vision needs: Yes (glasses) Questionnaire PHQ-9 Over the last 2 weeks, how often have you been bothered by any of the following problems? 1. Little interest or pleasure in doing things: not at all 2. Feeling down, depressed, or hopeless: not at all 3. Trouble falling or staying asleep, or sleeping too much: not at all 4. Feeling tired or having little energy: not at all 5. Poor appetite or overeating: not at all 6. Feeling bad about yourself - or that you are a failure or have let yourself or your family down: not at all 7. Trouble concentrating on things, such as reading the newspaper or watching television: not at all 8. Moving or speaking so slowly that other people could have noticed. Or the opposite - being so fidgety or restless that you have been moving around a lot more than usual: not at all 9. Thoughts that you would be better off or of hurting yourself in some way: not at all Total score: 0 Depression Screening Interpretation: Negative Depression Screening Done: Yes Source: Developed by Drs. Fabián Connolly, Danuta Andersen, Nate Thurman and colleagues, with an educational ev from [employer]. Thrive Questionnaire Date Thrive assessed: 07/14/24 I am a: Patient What is your living situation today?: I have a steady place to live Within the past 12 months, did the food you bought not last and you didn't have the money to get more?: Never true Within the past 12 months, did you worry whether your food would run out before you got money to buy more?: Never true Do you have trouble paying for medicines?: No Do you have trouble getting transportation to medical appointments?: No Do you have trouble paying your heating and electricity bill?: No Do you have trouble taking care of your child, family member or friend?: No Do you have trouble with day-to-day activities such as bathing, preparing meals, shopping, managing finances, etc.?: No Are you currently unemployed and looking for a job?: No Are you interested in more education?: No Please select the resources that you would like help with: None Currently or been in a relationship where the following occur: No concerns reported THRIVE Score: 0 AUDIT C Alcohol Use Questionnaire (AUDIT-C) 1. How often do you have a drink containing alcohol?: Never Total Score: 0 ADA-7 AMB Questionnaire ADA-7 Date ADA - 7 assessed: 04/16/24 Source: Developed by Drs. Fabián Connolly, Danuta Andersen, Nate Thurman and colleagues, with an educational ev from [employer]. Review of Systems Const Denies poor appetite and Denies weakness Eyes Denies no additional complaints ENT Reports Normal hearing present, Denies dizziness, Denies nasal congestion, Denies tinnitus and Denies sore throat Card Denies chest pain, Denies syncope, Denies rapid heart rate and Denies dyspnea Resp Denies cough and Denies dyspnea GI Denies change in stool character, Reports constipation, Denies diarrhea, Denies nausea and Denies vomiting Denies dysuria and Denies urinary frequency Neuro Reports Normal hearing present, Denies confusion, Denies dizziness, Denies syncope and Denies weakness Psych Denies confusion Physical exam (Primary Care) Vital Signs: Last Vital Signs Pulse 71 01/21/25 12:31 BP 136/68 01/21/25 12:31 Pulse Ox 97 01/21/25 12:31 Oxygen Delivery Method Room Air 01/21/25 12:31 BMI result Body Mass Index 25.7 Tobacco/Smoking Status: Tobacco use Status Tobacco use date assessed 04/16/24 01/21/25 12:38 Patient Tobacco Use Status Current someday Tobacco 01/21/25 12:38 Tobacco use type Cigar 01/21/25 12:38 e-Cigarette/Vaping Use Never Used 01/21/25 12:38 PHQ-9: PHQ-9 Score PHQ-9: Total score 0 01/21/25 12:38 Depression Screening Interpretation: Negative Thrive Assessment: Date of Thrive Assessment Date Thrive assessed 07/14/24 01/21/25 12:38 Currently or been in a relationship where the following occur: No concerns reported Const General: alert and awake; No confusion Orientation/consciousness: No confusion HENMT Head: Yes normocephalic Ears: external ears normal and TM's normal bilaterally Face and sinus: Yes normal facial exam Mouth: moist mucous membranes Throat: Yes tonsils normal Eyes Conjunctivae: conjunctivae normal Pupils: Equal, round and reactive pupils present and Pupil accommodation reflex normal Direct Ophthalmoscopy: normal light reflex Neck Neck: No lymphadenopathy Thyroid: Thyroid normal Chest Chest palpation & inspection: normal inspection of the chest Resp Effort & Inspection: normal respiratory effort and no audible wheezes Auscultation: clear to auscultation bilaterally, no crackles, no wheezes and lung sounds not diminished Cardio Rate: regular rate Rhythm: regular rhythm Peripheral pulses: radial pulses present and dorsalis pedis present GI Other: guaiac neg prostate N Palpation (GI): no masses Auscultation: normal bowel sounds and normoactive bowel sounds Male General Exam: Yes normal external exam Skin General skin exam: no rashes or lesions noted Rashes: no rashes Neuro General: deep tendon reflexes 2+ bilaterally and No confusion Cranial nerves: Yes Equal, round and reactive pupils present, Yes Midline tongue present, Yes Normal hearing present and Yes Ability to bilaterally elevate shoulders present Cognition (Neuro): normal cognition Gait exam (Neuro): Normal gait present Motor exam (neuro): 5/5 motor strength present throughout Deep tendon reflexes (DTR's): Right brachioradialis reflex intensity grade: 2+, Left brachioradialis reflex intensity grade: 2+, Right patellar reflex intensity grade: 2+ and Left patellar reflex intensity grade: 2+ Extrem General: No edema Office Procedures Flu Questionnaire Does the patient have a severe egg allergy?: No Does the patient have severe life threatening allergies?: No Does the patient have a fever or illness today?: No Has the patient ever had Guillain-Everson Syndrome?: No Has the patient ever had any past reaction to a flu shot?: No Immunizations Fluarix [id number] (PF) 45 mcg (15 mcg x 3)/0.5 mL IM syringe Performing Provider: Saray Parra MD [place] [facility] [facility] [place] [facility] Administered by: Mili Caballero CMA on 01/21/25 12:39 Dose Route Admin Location Dispensed Lot Number Expiration Date NDC Certified Medical Technician 0.5 mL IM Left Deltoid 0.5 mL [id number] 09/06/25 25740-110-87 [employer] VIS Given Date VIS Provided VIS Publication Date 01/21/25 Single Vaccine 24 Eligibility Eligibility Date Funding Source Not [facility] Eligible 01/21/25 Private Coding Level of Care Code Est Pt Prev Care 40-64y([id number]) Diagnoses Physical exam Z00.00 Hypertension I10 Hyperlipidemia E78.5 Scoliosis of lumbar region due to degenerative disease of spine in adult M41.56 Generalized anxiety disorder F41.1 Assessment & Plan Assessment & Plan (1) Physical exam: Code(s): Z00.00 - Encounter for general adult medical examination without abnormal findings Category: Medical Plan: Patient is advised to eat healthy, keep well hydrated, keep active and have adequate sleep. (2) Hypertension: Code(s): I10 - Essential (primary) hypertension Category: Medical Plan: Continue with blood pressure medication. Decrease salt intake and exercise on amlodipine 5 mg once a day atenolol 50 mg once a day (3) Hyperlipidemia: Code(s): E78.5 - Hyperlipidemia, unspecified Category: Medical Plan: Avoid fried foods, chicken skin, eggs, butter margarine, pastries and meat. Be it pork or beef they have a lot of cholesterol LDL goal of less than 130 and triglyceride of less than 150 on gemfibrozil 600 twice a day (4) Scoliosis of lumbar region due to degenerative disease of spine in adult: Comment: Status post 0 L IF March 2024 Code(s): M41.56 - Other secondary scoliosis, lumbar region Category: Medical Plan: Patient had a CT scan and will be following up with spine center (5) Generalized anxiety disorder: Code(s): F41.1 - Generalized anxiety disorder Category: Medical Plan: Continue with present medication as needed Plan History of Present Illness The patient is a 64-year-old male presenting for a physical exam. He has a history of hypertension, hypercholesterolemia, generalized anxiety disorder, and lumbar radiculopathy status post L2-L4 fusion in March. A CT scan of the lumbar spine in January showed stable post-surgical findings with intact hardware at L4 and degenerative changes at L4-L5 and L5-S1. He reports satisfaction with the surgery but experiences lower back pain with activities like golfing and yard work. For hypertension, the patient monitors his blood pressure at home and reports occasional high readings, typically around 140/85 mmHg, though his recent machine average was 135/83 mmHg. He is currently taking amlodipine 5 mg and atenolol 50 mg daily. Regarding hypercholesterolemia, his last lipid panel in February showed an LDL of 99 mg/dL and triglycerides of 201 mg/dL. He is on atorvastatin and gemfibrozil 600 mg twice daily. His generalized anxiety disorder is reportedly worse during the winter months when he is less active. He takes lorazepam as needed. His last colonoscopy was in 2022 and he is on a 10-year interval plan. Blood work from July 2024 showed a normal blood count, electrolytes, renal function, and glucose, with normal prostate and thyroid levels also reported. Family history is significant for a father with a history of heart attack, a brother who from a heart condition at age 24, and a sister who had a stroke. There is no family history of cancer. Health Maintenance The patient is up to date on his shingles, tetanus, pneumonia, and flu vaccinations. His last colonoscopy was in 2022, and he is on a 10-year screening interval. A fasting blood test was ordered, to include a lipid panel and PSA. Counseling was provided on maintaining hydration, healthy eating, and staying active, particularly during the winter months. Social History - Tobacco Use: The patient [place]. - Alcohol Use: The patient denies drinking alcohol. - Drug Use: The patient denies any recreational drug use. - Exercise: The patient reports golfing daily and doing a lot of yard work. - Activities: He has purchased a ski pass to try to ski more during the winter. Review of Systems - General: Denies fever. - Neurological: Denies passing out or feeling dizzy. - HEENT: Reports his vision has improved and he no longer needs corrective lenses for driving. Denies hearing problems or difficulty swallowing. - Cardiovascular: Denies waking up short of breath, chest heaviness, or discomfort. - Respiratory: Denies getting short of breath easily while walking. - Gastrointestinal: Reports getting heartburn the day after taking Viagra, which is relieved by Tums. Denies nausea, vomiting, constipation, or diarrhea. - Genitourinary: Denies any problems urinating and denies nocturia. - Psychiatric: Reports his anxiety is worse in the winter. Physical Exam General: Cooperative, healthy appearing, comfortable, no acute distress and well developed Orientation: Patient oriented x3 Limitations: No limitations Head: Normal to inspection Ears: Hearing grossly normal bilaterally Nose: Normal external nose present Face and sinus: Normal facial exam Eyes: Appearance normal, both eyes and all related structures Neck: Normal visual inspection and Yes full ROM Respiratory: Normal respiratory effort and able to speak in complete sentences. Clear to auscultation bilaterally Cardiovascular: Regular rate and rhythm. Normal S1 and S2 GI: Normal to inspection. Soft to palpation and nontender Skin: No rashes or lesions noted Neuro: Patient oriented x3 Extremities: Normal to inspection Results - Labs (July 2024): Normal complete blood count, electrolytes, renal function, and glucose. - Labs (Date not specified): PSA and thyroid function were normal. - Labs (February): LDL was 99 and triglycerides were 201. - Imaging (January 17): CT of the lumbar spine showed stable iatrogenic findings with normal vertebral alignment, intact surgical hardware at L4, and degenerative changes at L5-S1 and L4-L5. - Procedures: Last colonoscopy was in 2022. Plan Patient was informed and verbally consented to the use of an ambient scribe for clinic note documentation during this visit. 1. Essential Hypertension The patient's blood pressure is elevated, with an in-office reading of 160 systolic and home readings frequently in the 140s, despite being on amlodipine 5 mg and atenolol 50 mg. The patient will monitor his blood pressure at home for one month and send the readings. If readings remain consistently around 140, the plan is to increase amlodipine to 10 mg. The patient was counseled that a potential side effect of increasing amlodipine is leg swelling, and if this occurs, a third medication may be necessary. Increasing atenolol is not preferred due to a prior history of lowering the heart rate excessively. The importance of strict blood pressure control was emphasized due to his family history of cardiovascular disease. 2. Hyperlipidemia, Mixed The patient's last lipid panel showed an LDL of 99 and triglycerides of 201, with goals of an LDL <130 and triglycerides <150. He will continue his current regimen of atorvastatin and Gemfibrozil 600 mg twice daily. A fasting lipid panel has been ordered to re-evaluate. 3. Chronic Low Back Pain The patient experiences lower back pain with physical activity, related to underlying degenerative changes, despite a successful lumbar fusion. He will continue to use celecoxib and tramadol as needed for pain. He was advised to take celecoxib with food. A prescription for tramadol was refilled. He will follow up with the spine center in April. 4. Generalized Anxiety Disorder The patient's anxiety is stable and well-managed, with symptoms being more prominent during the winter. He will continue to take lorazepam as needed. Discussion Notes I discussed with the patient that his blood pressure is not well-controlled and he needs to monitor it at home for about a month and send me the results. If it remains high, I will increase his amlodipine, and I advised him of the potential side effect of leg swelling. We discussed the importance of controlling his blood pressure due to his significant family history of cardiovascular disease. I refilled his tramadol for back pain and advised him to continue his current cholesterol medications. A request for a fasting blood test was placed, which he can complete when ready. We reviewed that he is up to date on his immunizations and cancer screening. I encouraged him to maintain an active lifestyle during the winter and advised him to stop smoking cigars, explaining that his lungs only need air. Regarding the patient's question about his 's supplement, AG1, I reviewed her recent labs and advised that she should continue taking it every other day, not daily, due to her history of elevated potassium levels. Patient Instructions - Monitor your blood pressure at home for one month and send me a message with your readings. - If your blood pressure is consistently in the 140s, we may need to adjust your medication. - A lab order has been placed for a fasting blood test; please do not eat for 8 hours before the test. - Continue taking your current medications as prescribed. - Your prescription for tramadol has been refilled. - Please take your Celecoxib (Celebrex) with food. - Stay active, drink plenty of water, and continue to eat a healthy diet. - It is best for your health to avoid smoking cigars. - Please let your know that she should continue taking her AG1 supplement every other day, not daily, due to her potassium levels. Orders: Orders Complete Blood Count Auto Diff Today E78.5 - Hyperlipidemia, unspecified Free T4 (Free Thyroxine) Today E78.5 - Hyperlipidemia, unspecified Thyroid Stimulating Hormone Today E78.5 - Hyperlipidemia, unspecified Lipid Panel Today E78.00 - Pure hypercholesterolemia, unspecified, E78.5 - Hyperlipidemia, unspecified Vitamin B12 and Folate Today E78.5 - Hyperlipidemia, unspecified Prostate Specific Antigen Scr Today E78.5 - Hyperlipidemia, unspecified Influenza [id number] Immunization Today Z23 - Encounter for immunization Comprehensive Met. Panel Today E78.5 - Hyperlipidemia, unspecified Medications: Refilled tramadol 50 mg PO TID PRN 90 tabs 0RF pain 30 days E78.5 - Hyperlipidemia, unspecified
== END 2025-01-21 13:10 | disposition home or self-care (01) ==
LOC: HO.HMCH 12:25
PROVIDERS: PCP Internal Medicine; Visit Provider Internal Medicine
DX: Z00.00 Encounter for general adult medical examination without abnormal findings (principal); I10 Essential (primary) hypertension; E78.5 Hyperlipidemia, unspecified; M41.56 Other secondary scoliosis, lumbar region; F41.1 Generalized anxiety disorder; Z23 Encounter for immunization

== ENCOUNTER → 2025-01-21 12:24 | Outpatient (BNVA) | payer OTHER, SELFPAY | PROVIDERS: PCP Internal Medicine; Visit Provider Internal Medicine | DX: Z00.00 Encounter for general adult medical examination without abnormal findings (principal); I10 Essential (primary) hypertension; E78.2 Mixed hyperlipidemia; M41.56 Other secondary scoliosis, lumbar region; F41.1 Generalized anxiety disorder; Z23 Encounter for immunization | CPT/HCPCS: 90471; 90656; 96127 ==